=== PATIENT | female | born 1945 | race Caucasian/White ===

== ENCOUNTER 2018-02-20 16:44 | Emergency (ER) | payer OTHER ==
--- NOTE | 2018-02-20 17:58 | ER ---
Nurse's Notes [facility] Name: Jovita Guerrier Age: 72 yrs Sex: Female : 1945 Arrival Date: 02/20/2018 Time: 16:48 Bed Treatment Private MD: LYUBOV DOCKERY Diagnosis: Pain in right ankle and joints of right foot Presentation: 02/20 16:53 Presenting complaint: Patient states: "I just went to sit down and all of a sudden I aa5 got a pain to my right ankle and my foot". Transition of care: patient was not received from another setting of care. Onset of symptoms was February 2018. Risk Assessment: Do you want to hurt yourself or someone else? Patient reports no desire to harm self or others. Initial Sepsis Screen: Does the patient meet any 2 criteria? No. Patient's initial sepsis screen is negative. Does the patient have a suspected source of infection? No. Patient's initial sepsis screen is negative. Care prior to arrival: None. 16:53 Method Of Arrival: Ambulatory aa5 16:53 Acuity: DANNIELLE 4 aa5 Historical: - Allergies: 16:54 Codeine; aa5 16:54 Sulfa (Sulfonamide Antibiotics); aa5 - PMHx: 16:54 Diabetes - NIDDM; Headaches; Hyperlipidemia; aa5 - PSHx: 16:54 Hysterectomy; foot surgery; aa5 - Immunization history:: Last tetanus immunization: up to date. - Social history:: Smoking status: Patient/guardian denies using tobacco. - Ebola Screening: : No symptoms or risks identified at this time. Screenin:02 Abuse screen: Denies threats or abuse. Denies injuries from another. Nutritional rv screening: No deficits noted. Tuberculosis screening: No symptoms or risk factors identified. Fall Risk None identified. Assessment: 17:00 General: Appears in no apparent distress. comfortable, Behavior is calm, cooperative. rv Pain: Complains of pain in right ankle and lateral aspect of right foot Pain currently is 10 out of 10 on a pain scale. Neuro: Level of Consciousness is awake, alert, obeys commands, Oriented to person, place, time, situation. Cardiovascular: Capillary refill < 3 seconds. Respiratory: Airway is patent. GI: No signs and/or symptoms were reported involving the gastrointestinal system. : No signs and/or symptoms were reported regarding the genitourinary system. EENT: No signs and/or symptoms were reported regarding the EENT system. Derm: Skin is intact. Musculoskeletal: Reports pain in right ankle and lateral aspect of right foot. 17:40 Reassessment: XRAY DONE. AWAITING RESULT. rv Vital Signs: 16:54 BP 155 / 74; Pulse 64; Resp 18 S; Temp 97.8(TE); Pulse Ox 96% on R/A; Weight 89.81 kg aa5 (R); Height 5 ft. 6 in. (167.64 cm) (R); Pain 10/10; 16:54 Body Mass Index 31.96 (89.81 kg, 167.64 cm) aa5 ED Course: 16:48 Patient arrived in ED. sb2 16:49 LYUBOV DOCKERY is Private Physician. sb2 16:53 Triage completed. aa5 16:53 Arm band placed on. aa5 17:03 Jose Anderson PA is PHCP. cp 17:03 Tim Lynn MD is Attending Physician. cp 17:38 No provider procedures requiring assistance completed. rv 17:39 Patient has correct armband on for positive identification. Call light in reach. rv 17:50 X-ray completed. Portable x-ray completed in exam room. Patient tolerated procedure ml well. 17:53 XRAY Ankle RIGHT 3 view In Process Unspecified. EDMS 17:53 XRAY Foot RIGHT 3 View In Process Unspecified. EDMS 17:57 Ezequiel Vasquez MD is Referral Physician. cp 18:16 Patient did not have IV access during this emergency room visit. rv Administered Medications: No medications were administered Outcome: 17:57 Discharge ordered by . cp 18:16 Discharged to home ambulatory. rv 18:16 Condition: good 18:16 Discharge instructions given to patient, Instructed on discharge instructions, medication usage, Prescriptions given X 1. 18:16 Patient left the ED. rv Signatures: Dispatcher [employer] Jesica Lozano Audri, RN RN aa5 Jose Anderson PA PA cp Kassidy Conklin sb2 Keegan Cifuentes RN RN rv
--- NOTE | 2018-02-20 17:58 | EDPHYS ---
Physician Documentation [facility] Name: Jovita Guerrier Age: 72 yrs Sex: Female : 1945 Arrival Date: 02/20/2018 Time: 16:48 Bed Treatment Private MD: LYUBOV DOCKERY ED Physician Tim Lynn HPI: 02/20 17:10 This 72 yrs old Female presents to ER via Ambulatory with complaints of Ankle cp Injury. 17:10 The patient presents with pain, that is acute, tenderness. The complaints affect the cp right ankle and right foot. Onset: The symptoms/episode began/occurred this morning. Context: resulted from an unknown cause, The patient can fully bear weight on the affected extremity. the patient is able to ambulate, with mild difficulty. Associated signs and symptoms: Pertinent positives: paresthesias, Pertinent negatives: calf tenderness, fever, swelling. Modifying factors: the symptoms are aggravated by weight bearing. Severity of symptoms: in the emergency department the symptoms are unchanged, despite home interventions. Historical: - Allergies: 16:54 Codeine; aa5 16:54 Sulfa (Sulfonamide Antibiotics); aa5 - PMHx: 16:54 Diabetes - NIDDM; Headaches; Hyperlipidemia; aa5 - PSHx: 16:54 Hysterectomy; foot surgery; aa5 - Immunization history:: Last tetanus immunization: up to date. - Social history:: Smoking status: Patient/guardian denies using tobacco. - Ebola Screening: : No symptoms or risks identified at this time. ROS: 17:15 Constitutional: Negative for body aches, chills, fever, poor PO intake. cp 17:15 Eyes: Negative for injury, pain, redness, and discharge. cp 17:15 ENT: Negative for drainage from ear(s), ear pain, sore throat, difficulty swallowing, difficulty handling secretions. 17:15 Cardiovascular: Negative for chest pain, edema. 17:15 Respiratory: Negative for cough, shortness of breath, wheezing. 17:15 MS/extremity: Positive for pain, tenderness, of the right ankle and right foot. 17:15 Skin: Negative for cellulitis, rash. 17:15 Neuro: Positive for numbness, of the right ankle and right foot. 17:15 All other systems are negative. Exam: 17:25 Head/Face: Normocephalic, atraumatic. cp 17:25 Constitutional: The patient appears in no acute distress, alert, awake, non-toxic, well developed, well nourished. 17:25 Eyes: Periorbital structures: appear normal, Conjunctiva: normal, no exudate, no injection, Lids and lashes: appear normal, bilaterally. 17:25 ENT: External ear(s): are unremarkable, Nose: is normal, Posterior pharynx: is normal, airway is patent. 17:25 Chest/axilla: Inspection: normal. 17:25 Cardiovascular: Rate: normal, Pulses: Pulses are 2+ in right dorsalis pedis artery. 17:25 Respiratory: the patient does not display signs of respiratory distress, Respirations: normal, no use of accessory muscles, no retractions. 17:25 Abdomen/GI: Exam negative for discomfort, distension, guarding, Inspection: abdomen appears normal. 17:25 Musculoskeletal/extremity: Extremities: grossly normal except: noted in the lateral aspect of right ankle and dorsum of right foot: pain, tenderness, There is no evidence of injury, decreased ROM, deformity. 17:25 Skin: cellulitis, is not appreciated, no rash present. Vital Signs: 16:54 BP 155 / 74; Pulse 64; Resp 18 S; Temp 97.8(TE); Pulse Ox 96% on R/A; Weight 89.81 kg aa5 (R); Height 5 ft. 6 in. (167.64 cm) (R); Pain 10/10; 16:54 Body Mass Index 31.96 (89.81 kg, 167.64 cm) aa5 MDM: 17:03 Patient medically screened. cp 17:15 Differential diagnosis: fracture, sprain, gout, cellulitis. cp 17:56 Data reviewed: vital signs, nurses notes, radiologic studies, plain films. cp 02/20 17:07 Order name: XRAY Ankle RIGHT 3 view cp 02/20 17:07 Order name: XRAY Foot RIGHT 3 View cp 02/20 17:56 Order name: Crutches; Complete Time: 18:05 cp 02/20 17:56 Order name: Ankle Splint: Aircast; Complete Time: 18:05 cp Administered Medications: No medications were administered Disposition: 18:29 Co-signature as Attending Physician, Tim Lynn MD I agree with the assessment and kdr plan of care. Disposition: 02/20/18 17:57 Discharged to Home. Impression: Pain in right ankle and joints of right foot. - Condition is Stable. - Discharge Instructions: Ankle Pain. - Prescriptions for Tramadol 50 mg Oral Tablet - take 1 tablet by ORAL route every 8 hours as needed; 12 tablet. - Medication Reconciliation Form, Thank You Letter, Antibiotic Education, Prescription Opioid Use form. - Follow up: Ezequiel Vasquez MD; When: 1 week; Reason: pain continues. - Problem is new. - Symptoms are unchanged. Signatures: Dispatcher [employer] EDMS Tim Lynn MD MD [facility] Sarika Reed RN RN aa5 Jose Anderson PA PA cp Keegan Cifuentes, RN RN rv Corrections: (The following items were deleted from the chart) 18:16 17:57 02/20/2018 17:57 Discharged to Home. Impression: Pain in right ankle and joints rv of right foot. Condition is Stable. Forms are Medication Reconciliation Form, Thank You Letter, Antibiotic Education, Prescription Opioid Use. Follow up: Ezequiel Vasquez; When: 1 week; Reason: pain continues. Problem is new. Symptoms are unchanged. cp
--- NOTE | 2018-02-20 18:05 | RAD REPORT ---
EXAM DESCRIPTION: RAD - Ankle Right 3 View - 02/20/2018 5:53 pm CLINICAL HISTORY: PAIN COMPARISON: FOOT W OBLIQUES dated 12/29/2009; MRI FOOT RIGHT dated 12/30/2009 FINDINGS: Right ankle and right foot, multiple projections are submitted. No acute fracture or dislocation is seen. Small calcaneal spurs are noted. Mild tibiotalar arthritic changes are noted in the ankle. Moderate intertarsal degenerative changes are seen. Significant hallu x valgus with degenerative changes at the first MTP joint. Fusion with hardware is noted at the level of the PIP joints of the second and third toes. IMPRESSION: No acute injury is identified.
== END 2018-02-20 18:16 | disposition home or self-care (01) ==
LOC: ER 16:44
DX: M25.571 Pain in right ankle and joints of right foot (principal); E11.9 Type 2 diabetes mellitus without complications; E78.5 Hyperlipidemia, unspecified; Z88.6 Allergy status to analgesic agent; Z88.2 Allergy status to sulfonamides
CPT/HCPCS: 99283

== ENCOUNTER 2018-06-19 09:49 | Emergency (ER) | payer OTHER ==
--- OUTSIDE RECORDS SUMMARY | 2018-06-19 09:53 | XMS REPORT ---
:1945 Author Organization eClinicalWorks Care Team Providers Name Role Phone Shira Rios Provider Role Unavailable Allergies No Known Allergies Problems Problem Type Condition Code Onset Dates Condition Status Problem Spasm R25.2 Active Problem Diabetic peripheral neuropathy E11.42 Active Problem Mixed stress and urge urinary N39.46 Active incontinence Problem Hypertension I10 Active Problem Dyslipidemia E78.5 Active Problem Hyperlipidemia E78.5 Active Problem Depression F32.9 Active Problem Diabetes mellitus type 2, controlled E11.9 Active Problem Dizziness R42 Active Problem Sleep apnea G47.30 Active Medications Medication Code System Code Instructions Start Date End Date Status Dosage Myrbetriq [facility] 35809198882 25 MG Orally Once Oct 15, Nov 14, Active 1 tablet a day 2017 2017 Results No Known Results Summary Purpose eClinicalWorks Submission
--- OUTSIDE RECORDS SUMMARY | 2018-06-19 09:53 | XMS REPORT ---
:1945 Author Organization eClinical[employer] Care Team Providers Name Role Phone Shira Rios Provider Role Unavailable Allergies, Adverse Reactions, Alerts Substance Reaction Event Type Lyrica swelling Drug Allergy Problems Problem Type Condition Code Onset Dates Condition Status Problem Spasm R25.2 Active Problem Diabetic peripheral neuropathy E11.42 Active Problem Mixed stress and urge urinary N39.46 Active incontinence Problem Hypertension I10 Active Problem Dyslipidemia E78.5 Active Problem Hyperlipidemia E78.5 Active Problem Depression F32.9 Active Problem Diabetes mellitus type 2, E11.9 Active controlled Problem Dizziness R42 Active Problem Sleep apnea G47.30 Active Assessment Screening mammogram, encounter for Z12.31 Active Assessment Encounter for immunization Z23 Active Assessment Medicare annual wellness visit, Z00.00 Active subsequent Assessment Screening for osteoporosis Z13.820 Active Medications Medication Code Code Instructions Start End Status Dosage System Date Date Cymbalta [facility] 92502136169 20 MG Orally December 23, Active 1 capsule once a day 2017 Metformin HCl [facility] 77636079473 1000MG Active TAKE ONE TABLET BY MOUTH TWICE DAILY Metanx [facility] 58292335057 [id number] Active as directed MG Orally Gabapentin [facility] 07535752352 300 MG Active TAKE ONE CAPSULE BY MOUTH THREE TIMES DAILY Metoprolol [facility] 84478257816 25MG Active TAKE ONE Tartrate TABLET BY MOUTH TWICE DAILY Atorvastatin [facility] 18338336380 20MG Active TAKE ONE Calcium TABLET BY MOUTH ONCE DAILY IN THE EVENING Results No Known Results Immunizations Vaccine Administration Date Pneumovax May 25, 2018 Summary Purpose eClinicalWorks Submission
--- OUTSIDE RECORDS SUMMARY | 2018-06-19 09:53 | XMS REPORT ---
:1945 Author Organization eClinicalWorks Care Team Providers Name Role Phone Shira Rios Provider Role Unavailable Allergies, Adverse Reactions, Alerts Substance Reaction Event Type Lyrica swelling Drug Allergy Problems Problem Type Condition Code Onset Dates Condition Status Problem Spasm R25.2 Active Problem Diabetic peripheral neuropathy E11.42 Active Problem Mixed stress and urge urinary N39.46 Active incontinence Assessment Excessive cerumen in left ear canal H61.22 Active Assessment Mixed stress and urge urinary N39.46 Active incontinence Problem Hypertension I10 Active Problem Dyslipidemia E78.5 Active Problem Hyperlipidemia E78.5 Active Problem Depression F32.9 Active Problem Diabetes mellitus type 2, controlled E11.9 Active Problem Dizziness R42 Active Problem Sleep apnea G47.30 Active Medications Medication Code Code Instructions Start End Status Dosage System Date Date Gabapentin [facility] [address]-24 300 MG Orally Active 1 capsule Three times a day Metanx [facility] 80836700721 [id number] Active as MG Orally directed Oxybutynin ND 35671517176 5 MG Orally March 07Apr Active 1 tablet Chloride Twice a day 2017 Atorvastatin [facility] 76465674641 20MG Active TAKE ONE Calcium TABLET BY MOUTH ONCE DAILY IN THE EVENING Metoprolol ND 32223613960 25MG Active TAKE ONE Tartrate TABLET BY MOUTH TWICE DAILY Cymbalta ND 08948829635 20 MG Orally December 23, Active 1 capsule once a day 2017 Metformin HCl ND 09748808048 1000MG Active TAKE ONE TABLET BY MOUTH TWICE DAILY Results No Known Results Summary Purpose eClinicalWorks Submission
[2018-06-19] MEDS ORDERED: NA CHLORIDE 0.9% 500 ML ONE (10:22)
[2018-06-19 10:34] LABS: Absolute Lymphocytes (CBC) 2.1 K/uL (0.7-4.9); Absolute Monocytes 0.8 K/uL (0.1-1.3); Absolute Neutrophil 5.9 K/uL (1.8-8.0); Basophils % 0.4 % (0-1.3); Eosinophils % 0.5 % (0-4.4); Hematocrit 38.2 % (36.0-45.0); Lymphocytes % 23.2 % (15.3-44.8); MCH 30.3 pg (27.0-35.0); MCV 91.8 fL (80-100); MPV 8.3 fL (7.6-11.3); Monocytes % 9.4 % (3.3-12.3); RBC Red Blood Cell Count 4.16 M/uL (3.86-4.86)
--- NOTE | 2018-06-19 10:41 | RAD REPORT ---
EXAM DESCRIPTION: CT - Head Brain Wo Cont - 06/19/2018 10:31 am CLINICAL HISTORY: headache, dizzy COMPARISON: Head Brain Wo Cont dated 07/01/2016 TECHNIQUE: All CT scans are performed using dose optimization technique as appropriate and may inclu de automated exposure control or mA/KV adjustment according to patient size. FINDINGS: No intracranial hemorrhage, hydrocephalus or extra-axial fluid collection.No areas of brai n edema or evidence of midline shift. The paranasal sinuses and mastoids are clear. The calvarium is intact. IMPRESSION: No acute intracranial abnormality.
[2018-06-19 10:47] LABS: Potassium 4.1 mmol/L (3.5-5.1)
--- NOTE | 2018-06-19 11:07 | RAD REPORT ---
EXAM DESCRIPTION: RAD - Chest Single View - 06/19/2018 10:55 am CLINICAL HISTORY: dizziness Chest pain. COMPARISON: Chest Pa And Lat (2 Views) dated 03/20/2017 FINDINGS: Portable technique limits examination quality. The lungs are grossly clear. The heart is normal in size. No displaced fractures. IMPRESSION: No acute intrathoracic process suspected.
[2018-06-19 12:29] LABS: Urine Blood NEGATIVE (NEG); Urine Glucose NEGATIVE (NEG); Urine Protein NEGATIVE (NEG); Urine Specific Gravity 1.015 (1.005-1.030)
[2018-06-19 12:36] LABS: Urine Bacteria <20 /HPF (<20); Urine Culture Reflex Order REFLEXED; Urine RBC NONE SEEN /HPF (NONE SEEN)
--- NOTE | 2018-06-19 12:41 | EDPHYS ---
Physician Documentation [facility] Name: Jovita Guerrier Age: 72 yrs Sex: Female : 1945 Arrival Date: 06/19/2018 Time: 09:52 Bed 4 Private MD: LYUBOV DOCKERY ED Physician Niles López HPI: 06/19 12:31 This 72 yrs old Female presents to ER via Wheelchair with complaints of rn Doesn't Feel Right. 12:31 The patient presents with dizziness, feeling faint, sense of spinning. Onset: The rn symptoms/episode began/occurred 3 day(s) ago. Modifying factors: The symptoms are alleviated by holding head still, lying down, the symptoms are aggravated by movement of head, standing up. Severity of symptoms: At their worst the symptoms were moderate in the emergency department the symptoms have improved. The patient has experienced similar episodes in the past. Reports doesn't feel well, + head and sinus pressure, + runny nose, + cough for 1 week, seen last week by pcp, told had viral syndrome, but not better. No syncope. No chest pain/sob. . Historical: - Allergies: 10:04 Codeine; aa5 10:04 Sulfa (Sulfonamide Antibiotics); aa5 - PMHx: 10:04 Diabetes - NIDDM; Headaches; Hyperlipidemia; aa5 - PSHx: 10:04 Hysterectomy; foot surgery; aa5 - Immunization history:: Adult Immunizations up to date, Pneumococcal vaccine is up to date, Flu vaccine is up to date. - Social history:: Smoking status: Patient/guardian denies using tobacco, Patient/guardian denies using alcohol, Smoking status: Patient/guardian denies using tobacco. - Ebola Screening: : Patient negative for fever greater than or equal to 101.5 degrees Fahrenheit, and additional compatible Ebola Virus Disease symptoms Patient denies exposure to infectious person Patient denies travel to an Ebola-affected area in the 21 days before illness onset No symptoms or risks identified at this time. - Family history:: not pertinent. - Hospitalizations: : No recent hospitalization is reported. ROS: 12:31 Constitutional: Negative for fever, chills, and weight loss, Eyes: Negative for injury, rn pain, redness, and discharge, Cardiovascular: Negative for chest pain, palpitations, and edema, Respiratory: Negative for shortness of breath, wheezing, and pleuritic chest pain, Abdomen/GI: Negative for abdominal pain, nausea, vomiting, diarrhea, and constipation, MS/Extremity: Negative for injury and deformity, Skin: Negative for injury, rash, and discoloration, Neuro: Negative for numbness, tingling, and seizure. Exam: 12:31 Constitutional: This is a well developed, well nourished patient who is awake, alert, rn tearful Head/Face: Normocephalic, atraumatic. Eyes: Pupils equal round and reactive to light, extra-ocular motions intact. Lids and lashes normal. Conjunctiva and sclera are non-icteric and not injected. Cornea within normal limits. Periorbital areas with no swelling, redness, or edema. ENT: MMM, no stridor Neck: Trachea midline, no thyromegaly or masses palpated, and no cervical lymphadenopathy. Supple, full range of motion without nuchal rigidity, or vertebral point tenderness. No Meningismus. Cardiovascular: Regular rate and rhythm with a normal S1 and S2. No gallops, murmurs, or rubs. No pulse deficits. Respiratory: Lungs have equal breath sounds bilaterally, clear to auscultation. No increased work of breathing, no retractions or nasal flaring. Abdomen/GI: soft, non-tender MS/ Extremity: Pulses equal, no cyanosis. Neurovascular intact. Full, normal range of motion. Equal circumference. Neuro: Awake and alert, GCS 15, oriented to person, place, time, and situation. Cranial nerves II-XII grossly intact. Motor strength 5/5 in all extremities. Sensory grossly intact. Vital Signs: 10:01 BP 143 / 79; Pulse 60; Resp 18; Temp 98.5(O); Pulse Ox 100% on R/A; Weight 88.9 kg; hj Height 5 ft. 6 in. (167.64 cm); 11:35 BP 141 / 67; Pulse 62; Resp 18; Pulse Ox 100% on R/A; hj 12:22 BP 158 / 80; Pulse 56; Resp 18; Pulse Ox 100% on R/A; hj 13:10 BP 152 / 78; Pulse 58; Resp 18; Pulse Ox 100% on R/A; hj 10:01 Body Mass Index 31.63 (88.90 kg, 167.64 cm) hj NIH Stroke Scale Scores: 10:03 NIHSS Score: 0 MDM: 09:57 Patient medically screened. rn 12:38 Differential diagnosis: cardiac arrhythmia, generalized weakness, hypovolemia, rn idiopathic dizziness, near-syncope, vertigo, viral syndrome, dehydration, pneumonia. Data reviewed: vital signs, nurses notes, lab test result(s), radiologic studies, plain films, and as a result, I will discharge patient. Counseling: I had a detailed discussion with the patient and/or guardian regarding: the historical points, exam findings, and any diagnostic results supporting the discharge/admit diagnosis, lab results, the need for outpatient follow up, to return to the emergency department if symptoms worsen or persist or if there are any questions or concerns that arise at home. Special discussion: I discussed with the patient/guardian in detail that at this point there is no indication for admission to the hospital. It is understood, however, that if the symptoms persist or worsen the patient needs to return immediately for re-evaluation. 06/19 10:42 Order name: Group A Streptococcus Rapid Sc; Complete Time: 11:19 EDWI 06/19 10:44 Order name: CBC with Automated Diff; Complete Time: 11:19 EDWI 06/19 10:48 Order name: Basic Metabolic Panel; Complete Time: 11:19 EDWI 06/19 10:52 Order name: Influenza Screen (A ; Complete Time: 11:19 EDWI 06/19 10:59 Order name: [place] Screen; Complete Time: 11:19 EDWI 06/19 11:19 Order name: Urine Microscopic Only [facility] 06/19 11:24 Order name: Throat Culture [facility] 06/19 12:23 Order name: Urine Dipstick--Ancillary (enter results) 06/19 10:12 Order name: CT Head Brain wo Cont rn 06/19 10:12 Order name: IV Start; Complete Time: 10:29 rn 06/19 10:12 Order name: Urine Dipstick-Ancillary (obtain specimen); Complete Time: 12:22 rn 06/19 10:12 Order name: XRAY Chest (1 view) 06/19 10:12 Order name: EKG; Complete Time: 10:40 rn 06/19 10:12 Order name: EKG - Nurse/Tech; Complete Time: 10:28 rn 06/19 10:52 Order name: CT; Complete Time: 11:19 EDWI 06/19 11:08 Order name: RAD; Complete Time: 11:19 EDWI 06/19 12:38 Order name: Urine Culture EDMS Administered Medications: 10:20 Drug: NS 0.9% 500 ml Route: IV; Rate: bolus; Site: left antecubital; hj 13:11 Follow up: IV Status: Completed infusion hj Disposition: 06/19/18 12:40 Discharged to Home. Impression: Acute sinusitis, Cough. - Condition is Stable. - Discharge Instructions: Sinusitis, Adult. - Prescriptions for Zithromax Z- Selvin 250 mg Oral Tablet - take 1 tablet by ORAL route as directed for 5 days Day 1 - take two (2) tablets one time. Day 2, 3, 4 , 5 take one (1) tablet once daily.; 6 tablet. - Medication Reconciliation Form, Thank You Letter, Antibiotic Education, Prescription Opioid Use form. - Follow up: Private Physician; When: As needed; Reason: Recheck today's complaints, Re-evaluation by your physician. - Problem is new. - Symptoms have improved. NIH Stroke Scale - NIH Stroke Score Date: 06/19/2018 Time: 10:03 Total Score = 0 1a. Level of Consciousness (LOC) - 0(Alert) 1b. Level of Consciousness (LOC) (Year \T\ Age) - 0(Both) 1c. LOC Commands (Open \T\ Closes Eyes/Telex Operator) - 0(Both) 2. Best Gaze (Lateral Gaze Paresis) - 0(Normal) 3. Visual Field Loss - 0(No visual loss) 4. Facial Palsy - 0(Normal) 5a. Left Arm: Motor (10-second hold) - 0(No drift) 5b. Right Arm: Motor (10-second hold) - 0(No drift) 6a. Left Leg: Motor (5-second hold - always test supine) - 0(No drift) 6b. Right Leg: Motor (5-second hold - always test supine) - 0(No drift) 7. Limb Ataxia (finger/nose \T\ heel/garcia - test with eyes open) - 0(Absent) 8. Sensory Loss (pinprick arms/legs/face) - 0(Normal) 9. Best Language: Aphasia (description/naming/reading) - 0(No aphasia) 10. Dysarthria (speech clarity - read or repeat words) - 0(Normal) 11. Extinction and Inattention (visual/tactile/auditory/spatial/personal) - 0(No abnormality) Initials: hj Signatures: Dispatcher [employer] EDWI Niles López MD MD rn Calderon, Audri RN RN aa5 Mark Anthony Mock RN RN hj Corrections: (The following items were deleted from the chart) 11:39 10:39 Group A Streptococcus Rapid Sc+BA.LAB.BRZ ordered. EDMS EDMS 11:40 10:39 BASIC METABOLIC PANEL+C.LAB.BRZ ordered. EDMS EDMS 11:41 10:39 CBC+H.LAB.BRZ ordered. EDMS EDMS 11:41 10:39 UA MICROSCOPIC+U.LAB.BRZ ordered. EDMS EDMS 11:41 10:39 Influenza Screen (A \T\ B)+BA.LAB.BRZ ordered. EDMS EDMS 11:41 10:40 MONO SCREEN PROFILE+I.LAB.BRZ ordered. EDMS EDMS 13:16 12:40 06/19/2018 12:40 Discharged to Home. Impression: Acute sinusitis; Cough. hj Condition is Stable. Forms are Medication Reconciliation Form, Thank You Letter, Antibiotic Education, Prescription Opioid Use. Follow up: Private Physician; When: As needed; Reason: Recheck today's complaints, Re-evaluation by your physician. Problem is new. Symptoms have improved. rn
--- NOTE | 2018-06-19 12:41 | ER ---
Nurse's Notes [facility] Name: Jovita Guerrier Age: 72 yrs Sex: Female : 1945 Arrival Date: 06/19/2018 Time: 09:52 Bed 4 Private MD: LYUBOV DOCKERY Diagnosis: Acute sinusitis;Cough Presentation: 06/19 09:56 Presenting complaint: Patient states: "I just don't feel good". pt states "I woke up aa5 with vertigo on Tuesday, my head feels cloudy, I break out in a cold sweat every now and then and I've been coughing for a week now". 09:56 Transition of care: patient was not received from another setting of care. Onset of aa5 symptoms was June 2018. Risk Assessment: Do you want to hurt yourself or someone else? Patient reports no desire to harm self or others. Initial Sepsis Screen: Does the patient meet any 2 criteria? No. Patient's initial sepsis screen is negative. Does the patient have a suspected source of infection? No. Patient's initial sepsis screen is negative. Care prior to arrival: None. 09:56 Method Of Arrival: Wheelchair aa5 09:56 Acuity: DANNIELLE 3 aa5 Historical: - Allergies: 10:04 Codeine; aa5 10:04 Sulfa (Sulfonamide Antibiotics); aa5 - PMHx: 10:04 Diabetes - NIDDM; Headaches; Hyperlipidemia; aa5 - PSHx: 10:04 Hysterectomy; foot surgery; aa5 - Immunization history:: Adult Immunizations up to date, Pneumococcal vaccine is up to date, Flu vaccine is up to date. - Social history:: Smoking status: Patient/guardian denies using tobacco, Patient/guardian denies using alcohol, Smoking status: Patient/guardian denies using tobacco. - Ebola Screening: : Patient negative for fever greater than or equal to 101.5 degrees Fahrenheit, and additional compatible Ebola Virus Disease symptoms Patient denies exposure to infectious person Patient denies travel to an Ebola-affected area in the 21 days before illness onset No symptoms or risks identified at this time. - Family history:: not pertinent. - Hospitalizations: : No recent hospitalization is reported. Screenin:03 Abuse screen: Denies threats or abuse. Denies injuries from another. Nutritional hj screening: No deficits noted. Tuberculosis screening: No symptoms or risk factors identified. Fall Risk None identified. Assessment: 10:02 General: Appears in no apparent distress. uncomfortable, Behavior is calm, cooperative, hj appropriate for age. Pain: Denies pain. Neuro: Level of Consciousness is awake, alert, obeys commands, Oriented to person, place, time, situation, Appropriate for age Reports dizziness. Cardiovascular: Capillary refill < 3 seconds Patient's skin is warm and dry. Respiratory: Reports cough that is Airway is patent Respiratory effort is even, unlabored, Respiratory pattern is regular, symmetrical. GI: No signs and/or symptoms were reported involving the gastrointestinal system. : No signs and/or symptoms were reported regarding the genitourinary system. EENT: No signs and/or symptoms were reported regarding the EENT system. Derm: No signs and/or symptoms reported regarding the dermatologic system. Musculoskeletal: No signs and/or symptoms reported regarding the musculoskeletal system. 10:25 Reassessment: wheeled to CT;. hj 10:54 Reassessment: Patient and/or family updated on plan of care and expected duration. Pain hj level reassessed. Patient is alert, oriented x 3, equal unlabored respirations, skin warm/dry/pink. Patient states feeling better. Patient states symptoms have improved. 11:34 Reassessment: Patient and/or family updated on plan of care and expected duration. Pain hj level reassessed. Patient is alert, oriented x 3, equal unlabored respirations, skin warm/dry/pink. awaiting results and POC;. 12:10 Reassessment: Patient and/or family updated on plan of care and expected duration. Pain hj level reassessed. Patient is alert, oriented x 3, equal unlabored respirations, skin warm/dry/pink. assisted pt to bathroom; states: "i still is a little bit unbalanced". 12:59 Reassessment: gave oren crackers and orange juice;. hj Vital Signs: 10:01 BP 143 / 79; Pulse 60; Resp 18; Temp 98.5(O); Pulse Ox 100% on R/A; Weight 88.9 kg; hj Height 5 ft. 6 in. (167.64 cm); 11:35 BP 141 / 67; Pulse 62; Resp 18; Pulse Ox 100% on R/A; hj 12:22 BP 158 / 80; Pulse 56; Resp 18; Pulse Ox 100% on R/A; hj 13:10 BP 152 / 78; Pulse 58; Resp 18; Pulse Ox 100% on R/A; hj 10:01 Body Mass Index 31.63 (88.90 kg, 167.64 cm) NIH Stroke Scale Scores: 10:03 NIHSS Score: 0 ED Course: 09:52 Patient arrived in ED. mr 09:53 LYUBOV DOCKERY is Private Physician. mr 09:56 Arm band placed on Patient placed in an exam room, on a stretcher. aa5 09:57 Niles López MD is Attending Physician. rn 10:01 Mark Anthony Mock RN is Primary Nurse. 10:04 Triage completed. aa5 10:05 Patient has correct armband on for positive identification. Bed in low position. Call hj light in reach. Side rails up X 1. Adult w/ patient. 10:20 Initial lab(s) drawn, by ak, sent to lab. Flu and/or RSV swab sent to lab. Strep swab hj sent to lab. Inserted saline lock: 22 gauge in left antecubital area, using aseptic technique. Blood collected. 10:24 EKG done, by ophthalmic technologist. reviewed by Niles López MD. 3 10:53 X-ray completed. Portable x-ray completed in exam room. Patient tolerated procedure mh1 well. 12:21 Urine collected: clean catch specimen, clear. dh3 12:24 REPEAT EKG DONE. 3 13:09 No provider procedures requiring assistance completed. IV discontinued, intact, hj bleeding controlled, No redness/swelling at site. Pressure dressing applied. Administered Medications: 10:20 Drug: NS 0.9% 500 ml Route: IV; Rate: bolus; Site: left antecubital; 13:11 Follow up: IV Status: Completed infusion Outcome: 12:40 Discharge ordered by . rn 13:09 Discharged to home ambulatory. 13:09 Condition: stable 13:09 Discharge instructions given to patient, Instructed on discharge instructions, follow up and referral plans. medication usage, Demonstrated understanding of instructions, follow-up care, medications, Prescriptions given X 1. 13:16 Patient left the ED. NIH Stroke Scale - NIH Stroke Score Date: 06/19/2018 Time: 10:03 Total Score = 0 1a. Level of Consciousness (LOC) - 0(Alert) 1b. Level of Consciousness (LOC) (Year \\T\\ Age) - 0(Both) 1c. LOC Commands (Open \\T\\ Closes Eyes/Telephone Information Supervisor) - 0(Both) 2. Best Gaze (Lateral Gaze Paresis) - 0(Normal) 3. Visual Field Loss - 0(No visual loss) 4. Facial Palsy - 0(Normal) 5a. Left Arm: Motor (10-second hold) - 0(No drift) 5b. Right Arm: Motor (10-second hold) - 0(No drift) 6a. Left Leg: Motor (5-second hold - always test supine) - 0(No drift) 6b. Right Leg: Motor (5-second hold - always test supine) - 0(No drift) 7. Limb Ataxia (finger/nose \\T\\ heel/garcia - test with eyes open) - 0(Absent) 8. Sensory Loss (pinprick arms/legs/face) - 0(Normal) 9. Best Language: Aphasia (description/naming/reading) - 0(No aphasia) 10. Dysarthria (speech clarity - read or repeat words) - 0(Normal) 11. Extinction and Inattention (visual/tactile/auditory/spatial/personal) - 0(No abnormality) Initials: Signatures: Emilia Garcia mr PatricioMargo 1 Niles López MD MD rn Calderon, Audri, RN RN aa5 Mark Anthony Mock RN RN Ida Castellanos 3 Juanita Spears 3
--- NOTE | 2018-06-19 15:20 | EKG ---
Test Date: 2018-06-19 Test Time: 11:21:32 [employer]: JANAY MEASUREMENT RESULTS: Intervals: Rate: 57 TX: 126 QRSD: 84 QT: 394 QTc: 383 [place]: P: -24 TX: 126 QRS: -19 T: 4 INTERPRETIVE STATEMENTS: Sinus bradycardia Moderate voltage criteria for LVH, may be normal variant Borderline ECG Compared to ECG 07/02/2016 10:58:15 Left ventricular hypertrophy now present Sinus rhythm no longer present Electronically Signed On 06-19-18 15:19:22 [employer] by Alexander Duque
--- NOTE | 2018-06-20 06:30 | EKG ---
Test Date: 2018-06-19 Test Time: 13:18:57 Psychologist Social: JANAY MEASUREMENT RESULTS: Intervals: Rate: 62 VA: 114 QRSD: 84 QT: 380 QTc: 385 [place]: P: VA: 114 QRS: -17 T: 9 INTERPRETIVE STATEMENTS: Normal sinus rhythm Minimal voltage criteria for LVH, may be normal variant Borderline ECG Compared to ECG 06/19/2018 11:21:32 Sinus bradycardia no longer present Electronically Signed On 06-20-18 06:29:40 [employer]OCK [employer]KER by Alexander Duque
== END 2018-06-19 13:16 | disposition home or self-care (01) ==
LOC: ER 09:49
DX: J01.90 Acute sinusitis, unspecified (principal); R05 Cough; R00.1 Bradycardia, unspecified; E11.9 Type 2 diabetes mellitus without complications; E78.5 Hyperlipidemia, unspecified
CPT/HCPCS: 36415; 70450; 71045; 80048; 81003; 81015; 85025; 86308; 87070; 87081; 87086; 87088; 87804; 93005; 96360; 96361; 99284

== ENCOUNTER 2021-05-18 20:54 | Observation (INO) | payer OTHER, SELFPAY ==
--- NOTE | 2021-05-18 21:37 | RAD REPORT ---
EXAM DESCRIPTION: RAD - Chest Single View - 05/18/2021 9:27 pm CLINICAL HISTORY: COUGH COMPARISON: Chest Single View dated 06/19/2018; Chest Pa And Lat (2 Views) dated 03/20/2017 FINDINGS: Lines: None. Lungs: No evidence of edema or pneumonia. Pleural: No significant pleural effusions or pneumothorax. Cardiac: The heart size is within normal limits. Bones: No acute fractures. Other: IMPRESSION: No acute cardiopulmonary disease.
[2021-05-18 21:42] LABS: Absolute Lymphocytes (CBC) 0.4 K/uL (0.7-4.9); Basophils % 0.2 % (0-1.3); Hematocrit 32.5 % (36.0-45.0); Lymphocytes % 6.5 % (15.3-44.8); MPV 8.2 fL (7.6-11.3); RBC Red Blood Cell Count 3.56 M/uL (3.86-4.86)
[2021-05-18 21:43] LABS: Protime INR 1.21
[2021-05-18] MEDS ORDERED: NA CHLORIDE 0.9% 1,000 ML ONE (21:54)
[2021-05-18 21:55] LABS: BUN Blood Urea Nitrogen 23 mg/dL (7-18); Bicarbonate 27 mmol/L (21-32); Glucose Level 138 mg/dL (74-106); Sodium Level 140 mmol/L (136-145)
[2021-05-18 21:56] LABS: ALT/SGPT 35 U/L (12-78); AST/SGOT 21 U/L (15-37); Albumin 3.6 g/dL (3.4-5.0); Alkaline Phosphatase 58 U/L (45-117); Bilirubin Direct 0.2 mg/dL (0-0.2); Bilirubin Total 0.6 mg/dL (0.2-1.0); Lipase 321 U/L (73-393); Magnesium 1.5 mg/dL (1.8-2.4); NT PRO-BNP 297 pg/mL (<125); Protein, Total 6.8 g/dL (6.4-8.2); Troponin (Emerg Dept Use Only) < 0.02 ng/mL (0.0-0.045)
[2021-05-18] MEDS ORDERED: FAMOTIDINE 20 MG/2 ML VIAL IV ONE (22:25)
[2021-05-18] MEDS ORDERED: ONDANSETRON 4 MG/2 ML VIAL ONE (22:25)
[2021-05-18] MEDS ORDERED: MORPHINE 2 MG/ML SYR ONE (22:25)
[2021-05-18] MEDS ORDERED: MUPIROCIN 2% OINT 22GM TUBE TOP ONE (22:25)
--- NOTE | 2021-05-18 22:39 | ER ---
Nurse's Notes [facility] Name: Jovita Guerrier Age: 75 yrs Sex: Female : 1945 Arrival Date: 05/18/2021 Time: 21:00 Bed 6 Private MD: Diagnosis: Vomiting;Diarrhea, unspecified;Abdominal pain, Generalized;Fever, unspecified;Dehydration;Hypomagnesemia Presentation: 05/18 21:05 Chief complaint: Patient states: [place] Nausea, Vomiting and Diarrhea that started dc2 yesterday. today is worse. Also complaining of left foot cramping which is chronic. Coronavirus screen: Vaccine status: Patient reports receiving the 2nd dose of the covid vaccine. Client denies travel out of the [place] in the last 14 days. diarrhea, nausea, vomiting. Client presents with at least one sign or symptom that may indicate coronavirus-19. Standard/surgical mask placed on the client. Provider contacted for isolation considerations. The client reports previous COVID testing was negative. unknown. Ebola Screen: Patient negative for fever greater than or equal to 101.5 degrees Fahrenheit, and additional compatible Ebola Virus Disease symptoms Patient denies exposure to infectious person. Patient denies travel to an Ebola-affected area in the 21 days before illness onset. 21:05 Method Of Arrival: EMS: [facility] dc2 21:05 Initial Sepsis Screen: Does the patient meet any 2 criteria? Temp <36.0*C (96.8*F)) or dc2 > 38.3*C (100.9*F). No. Patient's initial sepsis screen is negative. Risk Assessment: Do you want to hurt yourself or someone else? Patient reports no desire to harm self or others. Onset of symptoms was May 17, 2021. Care prior to arrival: Took gabapentin for feet cramping, called EMS and they completed left antecubital #20g with Normal saline and EKG performed in field. 21:05 Acuity: DANNIELLE 3 dc2 23:00 Initial Sepsis Screen: Does the patient have a suspected source of infection? No. dc2 Patient's initial sepsis screen is negative. Triage Assessment: 21:10 General: Appears uncomfortable, well groomed, well developed, Behavior is calm, dc2 cooperative. Pain: Pain currently is 2 out of 10 on a pain scale. Quality of pain is described as crampy, Pain began years ago. Is intermittent. Neuro: No deficits noted. Cardiovascular: No deficits noted. Respiratory: No deficits noted. GI: Abdomen is non-distended, obese, Stools are reported to be diarrhea. Last BM was April 18, 2021. Last meal was April 18, 2021. at 13:00. Bowel sounds present X 4 quads. hyperactive in right upper quadrant, left upper quadrant, right lower quadrant and left lower quadrant Reports diarrhea, nausea, vomiting, since Tuesday afternoon , by today it has worsened vomiting everything. Pt instructed on NPO status at this time. : No signs and/or symptoms were reported regarding the genitourinary system. Musculoskeletal: No deficits noted. Historical: - Allergies: 21:11 Codeine; cw2 21:11 Sulfa (Sulfonamide Antibiotics); cw2 - Immunization history:: Adult Immunizations up to date. - Social history:: Smoking status: Patient denies any tobacco usage or history of. Patient/guardian denies using. Screenin:08 Abuse screen: Denies threats or abuse. Nutritional screening: No deficits noted. cw2 Tuberculosis screening: No symptoms or risk factors identified. Fall Risk IV access (20 points). Assessment: 21:05 General: Appears in no apparent distress. uncomfortable, obese, well groomed, Behavior dc2 is cooperative, anxious. Pain: Complains of pain in Stomach and bilateral feet ( nueropathy). 21:05 Neuro: No deficits noted. Cardiovascular: No deficits noted. Respiratory: No deficits dc2 noted. GI: Abdomen is round non-distended, Bowel sounds present X 4 quads. hyperactive in umbilical area, right upper quadrant, left upper quadrant, right lower quadrant and left lower quadrant Reports diarrhea, nausea, vomiting, since Tuesday with increasing on Tuesday. : Denies burning with urination, urinary frequency. Musculoskeletal: No deficits noted. No signs and/or symptoms reported regarding the musculoskeletal system. Vital Signs: 21:05 BP 130 / 72; Pulse 91; Resp 18; Temp 100.1; Pulse Ox 97% ; Weight 86.18 kg (R); Height dc2 5 ft. 6 in. (167.64 cm); Pain 2/10; 21:05 BP 130 / 72; Pulse 91; Resp 18; Temp 100.1; Pulse Ox 97% ; Weight 86.18 kg; Height 5 dc2 ft. 6 in. (167.64 cm); Pain 2/10; 22:39 BP 113 / 92; Pulse 90; Resp 18; Pulse Ox 98% ; Pain 4/10; dc2 23:00 BP 147 / 66; Pulse 89; Resp 17; Pulse Ox 96% ; Pain 2/10; dc2 10 00:00 BP 137 / 74; Pulse 87; Resp 17; Pulse Ox 94% ; Pain 0/10; dc2 01:00 BP 141 / 69; Pulse 79; Resp 17; Temp 99.1; Pulse Ox 97% on R/A; Pain 0/10; dc2 05/18 21:05 Body Mass Index 30.67 (86.18 kg, 167.64 cm) dc2 ED Course: 05/18 21:00 Patient arrived in ED. cf2 21:03 Jose Roman MD is Attending Physician. [facility] 21:05 Brooke Santiago RN is Primary Nurse. dc2 21:05 No provider procedures requiring assistance completed. Initial lab(s) drawn, by ED cw2 staff, sent to lab. Maintain EMS IV. Dressing intact. Site clean \T\ dry. Gauge \T\ site: 20g LAC. 21:07 No apparent distress. cw2 21:08 Patient has correct armband on for positive identification. Placed in gown. Bed in low cw2 position. Call light in reach. Side rails up X2. bus driver/monitor on. Pulse ox on. NIBP on. Door closed. Noise minimized. Lights dimmed. Moved to private room. 21:13 Triage completed. dc2 21:19 X-ray(s) taken. dc2 21:25 Basic Metabolic Panel Sent. dc2 21:25 XRAY Chest (1 view) Sent. dc2 21:25 CBC with Diff Sent. dc2 21:25 LFT's Sent. dc2 21:25 Magnesium Sent. dc2 21:25 NT PRO-BNP Sent. dc2 21:25 PT-INR Sent. dc2 21:25 Troponin (emerg Dept Use Only) Sent. dc2 21:25 Basic Metabolic Panel Sent. dc2 21:26 XRAY Chest (1 view) In Process Unspecified. EDMS 21:26 Lipase Sent. dc2 22:[address] dc2 22:15 CT Abd/Pelvis - IV Contrast Only In Process Unspecified. EDMS 22:15 Door closed. Lights dimmed. dc2 22:15 bus driver/monitor on. Pulse ox on. NIBP on. Assisted to bedside commode. dc2 22:38 [place] MD is Hospitalizing Provider. [facility] 22:39 [address] moved [address] dc2 23:00 Patient wound care. dc2 05/19 00:29 antibiotic ointment and band aid applied to left foot. dc2 01:08 Patient admitted, IV remains in place. intact, No redness/swelling at site. dc2 Administered Medications: 05/18 21:37 Drug: NS 0.9% 1000 ml Route: IV; Rate: 1 bolus; Infused Over: 1 hrs; Site: left dc2 antecubital; Delivery: Primary tubing; 22:00 Drug: Bactroban (mupirocin) Ointment 2 % 1 application {Note: Left great toe.} Route: dc2 Topical; Site: affected area; 22:39 Drug: Zofran (Ondansetron) 4 mg Route: IVP; Site: left antecubital; dc2 23:30 Follow up: Response: Nausea is decreased dc2 22:40 Drug: Pepcid (famotidine) 20 mg Route: IVP; Site: left antecubital; dc2 23:09 Follow up: Response: No adverse reaction dc2 23:30 Follow up: Response: No adverse reaction dc2 22:40 Drug: morphine 2 mg Route: IVP; Site: left antecubital; dc2 23:30 Follow up: Response: Pain is decreased dc2 22:44 Drug: Cipro (ciprofloxacin) 400 mg Volume: 200 ml; Route: IVPB; Infused Over: 60 mins; cw2 Site: left antecubital; 23:45 Follow up: IV Status: Completed infusion; IV Intake: 100ml dc2 22:44 Drug: Flagyl (metroNIDAZOLE) 500 mg Volume: 100 ml; Route: IVPB; Rate: 200 ml/hr; cw2 Infused Over: 30 mins; Site: left antecubital; 23:45 Follow up: IV Status: Completed infusion; IV Intake: 100ml dc2 22:45 Drug: Magnesium Sulfate 2 grams Route: IVPB; Infused Over: 2 hrs; Site: left cw2 antecubital; 05/19 00:45 Follow up: IV Status: Completed infusion; IV Intake: 100ml dc2 Intake: 05/18 23:45 IV: 100ml; Total: 100ml. dc2 23:45 IV: 100ml; Total: 200ml. dc2 05/19 00:45 IV: 100ml; Total: 300ml. dc2 Outcome: 05/18 22:39 Decision to Hospitalize by Provider. michael 05/19 01:07 Admitted to Med/surg accompanied by tech, via stretcher, Report called to SEFERINO Shaffer dc2 Condition: improved Instructed on the need for admit, safety practices. 01:21 Patient left the ED. dc2 Signatures: Dispatcher [employer] [facility] Jose Roman MD MD cha Frazier, [place] 2 Brooke Santiago RN RN evy2 Yves Murillo RN RN cw2 Corrections: (The following items were deleted from the chart) 05/18 21:10 21:08 PMHx: Diabetes - NIDDM; cw2 cw2 21:10 21:08 PMHx: Headaches; cw2 cw2 21:10 21:08 PMHx: Hyperlipidemia; cw2 cw2 21:11 21:08 Allergies: Codeine [Inactive]; cw2 cw2 21:11 21:08 Allergies: Sulfa (Sulfonamide Antibiotics) [Inactive]; cw2 cw2
--- NOTE | 2021-05-18 22:39 | EDPHYS ---
Physician Documentation [facility] Name: Jovita Guerrier Age: 75 yrs Sex: Female : 1945 Arrival Date: 05/18/2021 Time: 21:00 Bed 6 Private MD: ED Physician Jose Roman HPI: 05/18 21:42 This 75 yrs old Female presents to ER via EMS with complaints of michael Nausea/Vomiting/Diarrhea. 21:42 The patient presents to the emergency department with nausea, vomiting, diarrhea, that michael is continuous. Onset: The symptoms/episode began/occurred 8 hour(s) ago. Possible causes: unknown. The symptoms are aggravated by nothing. The symptoms are alleviated by nothing. Associated signs and symptoms: The patient has no apparent associated signs or symptoms. Severity of symptoms: At their worst the symptoms were mild in the emergency department the symptoms are unchanged. The patient has not experienced similar symptoms in the past. Historical: - Allergies: 21:11 Codeine; cw2 21:11 Sulfa (Sulfonamide Antibiotics); cw2 - Immunization history:: Adult Immunizations up to date. - Social history:: Smoking status: Patient denies any tobacco usage or history of. Patient/guardian denies using. ROS: 21:44 Constitutional: Negative for fever, chills, and weight loss, Eyes: Negative for injury, michael pain, redness, and discharge, ENT: Negative for injury, pain, and discharge, Neck: Negative for injury, pain, and swelling, Cardiovascular: Negative for chest pain, palpitations, and edema, Respiratory: Negative for shortness of breath, cough, wheezing, and pleuritic chest pain, Back: Negative for injury and pain, : Negative for injury, bleeding, discharge, and swelling, MS/Extremity: Negative for injury and deformity, Skin: Negative for injury, rash, and discoloration, Neuro: Negative for headache, weakness, numbness, tingling, and seizure, Psych: Negative for depression, anxiety, suicide ideation, homicidal ideation, and hallucinations, Allergy/Immunology: Negative for hives, rash, and allergies, Endocrine: Negative for neck swelling, polydipsia, polyuria, polyphagia, and marked weight changes, Hematologic/Lymphatic: Negative for swollen nodes, abnormal bleeding, and unusual bruising. 21:44 Abdomen/GI: Positive for abdominal pain, nausea and vomiting, diarrhea, abdominal cramps, abdominal distension. Exam: 21:44 Constitutional: This is a well developed, well nourished patient who is awake, alert, michael and in no acute distress. Head/Face: Normocephalic, atraumatic. Eyes: Pupils equal round and reactive to light, extra-ocular motions intact. Lids and lashes normal. Conjunctiva and sclera are non-icteric and not injected. Cornea within normal limits. Periorbital areas with no swelling, redness, or edema. ENT: Nares patent. No nasal discharge, no septal abnormalities noted. Tympanic membranes are normal and external auditory canals are clear. Oropharynx with no redness, swelling, or masses, exudates, or evidence of obstruction, uvula midline. Mucous membranes moist. Neck: Trachea midline, no thyromegaly or masses palpated, and no cervical lymphadenopathy. Supple, full range of motion without nuchal rigidity, or vertebral point tenderness. No Meningismus. Chest/axilla: Normal chest wall appearance and motion. Nontender with no deformity. No lesions are appreciated. Cardiovascular: Regular rate and rhythm with a normal S1 and S2. No gallops, murmurs, or rubs. Normal PMI, no JVD. No pulse deficits. Respiratory: Lungs have equal breath sounds bilaterally, clear to auscultation and percussion. No rales, rhonchi or wheezes noted. No increased work of breathing, no retractions or nasal flaring. Back: No spinal tenderness. No costovertebral tenderness. Full range of motion. Skin: Warm, dry with normal turgor. Normal color with no rashes, no lesions, and no evidence of cellulitis. MS/ Extremity: Pulses equal, no cyanosis. Neurovascular intact. Full, normal range of motion. Neuro: Awake and alert, GCS 15, oriented to person, place, time, and situation. Cranial nerves II-XII grossly intact. Motor strength 5/5 in all extremities. Sensory grossly intact. Cerebellar exam normal. Normal gait. Psych: Awake, alert, with orientation to person, place and time. Behavior, mood, and affect are within normal limits. 21:44 Abdomen/GI: Inspection: distension, that is mild, Bowel sounds: hyperactive, in all quadrants, Palpation: mild abdominal tenderness, in all quadrants, Liver: no appreciated palpable abnormalities, Hernia: not appreciated. 05/19 01:10 ECG was reviewed by the Attending Physician. [facility] Vital Signs: 05/18 21:05 BP 130 / 72; Pulse 91; Resp 18; Temp 100.1; Pulse Ox 97% ; Weight 86.18 kg (R); Height dc2 5 ft. 6 in. (167.64 cm); Pain 2/10; 21:05 BP 130 / 72; Pulse 91; Resp 18; Temp 100.1; Pulse Ox 97% ; Weight 86.18 kg; Height 5 dc2 ft. 6 in. (167.64 cm); Pain 2/10; 22:39 BP 113 / 92; Pulse 90; Resp 18; Pulse Ox 98% ; Pain 4/10; dc2 23:00 BP 147 / 66; Pulse 89; Resp 17; Pulse Ox 96% ; Pain 2/10; dc2 05/19 00:00 BP 137 / 74; Pulse 87; Resp 17; Pulse Ox 94% ; Pain 0/10; dc2 01:00 BP 141 / 69; Pulse 79; Resp 17; Temp 99.1; Pulse Ox 97% on R/A; Pain 0/10; dc2 05/18 21:05 Body Mass Index 30.67 (86.18 kg, 167.64 cm) dc2 MDM: 05/18 21:03 Patient medically screened. [facility] 21:45 Differential diagnosis: Nonspecific abd pain, gastritis, cholecystitis, pancreatitis, michael diverticulitis, viral gastroenteritis, gastroenteritis, bowel obstruction, cholecystitis, Cholelithiasis, diverticulitis, gastritis. Data reviewed: vital signs, nurses notes, lab test result(s), EKG, radiologic studies, CT scan. Data interpreted: teletypesetter monitor: not applicable for this patient encounter. rate is 91 beats/min, rhythm is regular, Pulse oximetry: on room air is 97 %. Test interpretation: by ED physician or midlevel provider: ECG, plain radiologic studies. Counseling: I had a detailed discussion with the patient and/or guardian regarding: the historical points, exam findings, and any diagnostic results supporting the discharge/admit diagnosis, lab results, radiology results, the need for further work-up and treatment in the hospital. 05/18 21:06 Order name: Basic Metabolic Panel [facility] 05/18 21:06 Order name: CBC with Diff; Complete Time: 22:48 [facility] 05/18 21:06 Order name: LFT's; Complete Time: 22:35 [facility] 05/18 21:06 Order name: Magnesium; Complete Time: 22:35 [facility] 05/18 21:06 Order name: NT PRO-BNP; Complete Time: 22:35 [facility] 05/18 21:06 Order name: PT-INR; Complete Time: 22:35 [facility] 05/18 21:06 Order name: Troponin (emerg Dept Use Only); Complete Time: 22:35 [facility] 05/18 21:06 Order name: Lipase; Complete Time: 22:35 [facility] 05/18 21:06 Order name: Fecal Leukocyte Stain [facility] 05/18 21:06 Order name: Stool Culture [facility] 05/18 21:07 Order name: Basic Metabolic Panel; Complete Time: 22:35 EDMS 05/18 21:53 Order name: Manual Differential; Complete Time: 22:48 EDMS 05/19 00:22 Order name: SARS-COV-2 RT PCR EDMS 05/18 21:06 Order name: XRAY Chest (1 view); Complete Time: 21:42 [facility] 05/18 21:06 Order name: EKG; Complete Time: 21:07 [facility] 05/18 21:06 Order name: Cardiac monitoring; Complete Time: 21:25 [facility] 05/18 21:06 Order name: EKG - Nurse/Tech [facility] 05/18 21:06 Order name: IV Saline Lock; Complete Time: 21:25 [facility] 05/18 21:06 Order name: Labs collected and sent; Complete Time: 21:25 [facility] 05/18 21:06 Order name: O2 Per Protocol; Complete Time: 21:25 [facility] 05/18 21:54 Order name: CT Abd/Pelvis - IV Contrast Only [facility] 05/18 21:06 Order name: O2 Sat Monitoring; Complete Time: 21:25 [facility] 05/18 21:42 Order name: Wound Care: right foot; Complete Time: 23:09 [facility] EC/05 01:10 Rate is 78 beats/min. Rhythm is regular. QRS [place] is Normal. [place] interval is normal. QRS michael interval is normal. QT interval is normal. No Q waves. T waves are Normal. No ST changes noted. Clinical impression: NSR w/ Non-specific ST/T Changes and No evidence of ischemia. Interpreted by me. Reviewed by me. Administered Medications: 10/04 21:37 Drug: NS 0.9% 1000 ml Route: IV; Rate: 1 bolus; Infused Over: 1 hrs; Site: left dc2 antecubital; Delivery: Primary tubing; 22:00 Drug: Bactroban (mupirocin) Ointment 2 % 1 application {Note: Left great toe.} Route: dc2 Topical; Site: affected area; 22:39 Drug: Zofran (Ondansetron) 4 mg Route: IVP; Site: left antecubital; dc2 23:30 Follow up: Response: Nausea is decreased dc2 22:40 Drug: Pepcid (famotidine) 20 mg Route: IVP; Site: left antecubital; dc2 23:09 Follow up: Response: No adverse reaction dc2 23:30 Follow up: Response: No adverse reaction dc2 22:40 Drug: morphine 2 mg Route: IVP; Site: left antecubital; dc2 23:30 Follow up: Response: Pain is decreased dc2 22:44 Drug: Cipro (ciprofloxacin) 400 mg Volume: 200 ml; Route: IVPB; Infused Over: 60 mins; cw2 Site: left antecubital; 23:45 Follow up: IV Status: Completed infusion; IV Intake: 100ml dc2 22:44 Drug: Flagyl (metroNIDAZOLE) 500 mg Volume: 100 ml; Route: IVPB; Rate: 200 ml/hr; cw2 Infused Over: 30 mins; Site: left antecubital; 23:45 Follow up: IV Status: Completed infusion; IV Intake: 100ml dc2 22:45 Drug: Magnesium Sulfate 2 grams Route: IVPB; Infused Over: 2 hrs; Site: left cw2 antecubital; 05/19 00:45 Follow up: IV Status: Completed infusion; IV Intake: 100ml dc2 Disposition Summary: 05/18/21 22:39 Hospitalization Ordered Hospitalization Status: Inpatient Admission michael Provider: [facility] Location: Telemetry/MedSurg (Inpatient) michael Condition: Stable michael Problem: new michael Symptoms: have improved michael Bed/Room Type: Standard michael Room Assignment: 201(05/19/21 00:27) tl1 Diagnosis - Vomiting michael - Diarrhea, unspecified michael - Abdominal pain, Generalized michael - Fever, unspecified michael - Dehydration michael - Hypomagnesemia michael Forms: - Medication Reconciliation Form michael - SBAR form michael Signatures: Dispatcher [employer] EDMS Jose Roman MD MD cha Lasagna, Tonya, RN RN tl1 Mason Carter PA PA ej Charters, Denise, RN RN dc2 Yves Murillo, SEFERINO RN cw2 Corrections: (The following items were deleted from the chart) 05/18 21:10 21:08 PMHx: Diabetes - NIDDM; cw2 2 : 21:08 PMHx: Headaches; cw2 2 : 21:08 PMHx: Hyperlipidemia; cw2 cw2 : 21:08 Allergies: Codeine [Inactive]; 2 cw2 21: 21:08 Allergies: Sulfa (Sulfonamide Antibiotics) [Inactive]; 2 2 23:23 21:07 CORONAVIRUS+MR.LAB.BRZ ordered. EDNE EDNE 05/19 00:27 05/18 22:39 michael tl1
[2021-05-18 22:48] LABS: Blood Morphology Comment NOT SEEN (NOT SEEN); Platelet Estimate ADEQ
[2021-05-18] MEDS ORDERED: METRONIDAZOLE 500mg IVPB 500 MG/100 ML BAG IV ONE (23:08)
[2021-05-18] MEDS ORDERED: Magnesium Sulfate 2gm IVPB 2 G/50 ML BAG IV ONE (23:08)
[2021-05-18] MEDS ORDERED: CIPROFLOXACIN 400mg IV 400 MG/200 ML BAG IV ONE (23:08)
--- NOTE | 2021-05-19 00:24 | P.HP ---
Certification for Inpatient Patient admitted to: Observation With expected LOS: <2 Midnights Patient will require the following post-hospital care: None Practitioner: I am a practitioner with admitting privileges, knowledge of patient current condition, hospital course, and medical plan of care. Services: Services provided to patient in accordance with Admission requirements found in Title 42 Section 412.3 of the Code of Federal Regulations Patient History Date of Service: 05/19/21 Primary Care Provider: Mirta Reason for admission: intractable nausea and vomiting History of Present Illness: Ms. Guerrier is a 75 yo F with T2DM, HTN, HLD, LOI and neuropathy who presents with nausea, vomiting and diarrhea beginning today at 1pm. She reports malaise, fatigue and chills beginning yesterday evening. She says she has been eating lunch meat sandwiches, but today she felt like the bread and the mayonnaise were making her nauseous so she just ate the lunch meat. She denies abdominal pain, but reports soreness from vomiting. BUN 23, GFR 52. Glu 138. Mg 1.5. CT scan shows mild fluid-filled prominence of some loops of bowel in the lower adomen with no evidence for obstruction, correlate for ileus or enteritis & moderate left colonic diverticulosis without evidence of acute diverticulitis. Received cipro, flagyl, magnesium and fluids in the ED. Allergies Sulfa (Sulfonamide Antibiotics) Allergy (Severe, Verified 11/25/14 07:43) Nausea/Vomiting codeine Adverse Reaction (Verified 11/25/14 07:44) Nausea/Vomiting Home Medications: Gabapentin 300 mg PO TID 11/25/14 Metformin HCl [Glucophage] 500 tab PO BID 11/25/14 Aspirin [Aspirin EC 81 MG] 81 mg PO DAILY #90 tablet. 07/03/16 Metoprolol Tartrate [Lopressor*] 25 mg PO BID 6AM 6PM #60 tab 07/03/16 Ondansetron HCl [Zofran] 4 mg PO TID PRN #15 tablet 07/03/16 - Past Medical/Surgical History Diabetic: Yes -: Diabetes mellitus type 2 -: Hypertension -: Hyperlipidemia -: Obstructive sleep apnea -: Obesity -: Neuropathy -: Migraine -: Hysterectomy -: Left foot I and D -: Tendon surgery to the lower extremities bilaterally Psychosocial/ Personal History: She is 33 years, she has no children, she works as a [employer] agent. She also works at the [employer]. - Family History Mother -: Heart disease (Atrial fibrillation) Father -: Heart disease - Social History Smoking Status: Never smoker Alcohol use: No CD- Drugs: No Caffeine use: Yes Place of Residence: Home Review of Systems 10-point ROS is otherwise unremarkable General: Chills, Malaise Gastrointestinal: Nausea, Vomiting, Diarrhea Physical Examination - Physical Exam General: Alert, In no apparent distress, Oriented x3, Cooperative HEENT: Atraumatic, PERRLA, Mucous membr. moist/pink, EOMI, Sclerae nonicteric Neck: Supple, 2+ carotid pulse no bruit, No LAD, Without JVD or thyroid abnormality Respiratory: Clear to auscultation bilaterally, Normal air movement Cardiovascular: Regular rate/rhythm, Normal S1 S2 Gastrointestinal: Normal bowel sounds, Soft and benign, Non-distended, No ascites, No tenderness, No masses, No rebound, No guarding Musculoskeletal: No tenderness Integumentary: No rashes Neurological: Normal speech, Normal strength at 5/5 x4 extr, Normal tone, Normal affect Lymphatics: No axilla or inguinal lymphadenopathy - Studies Laboratory Data (last 24 hrs) 05/18/21 21:00: PT 13.9 H, INR 1.21 05/18/21 21:00: WBC 6.60, Hgb 11.1 L, Hct 32.5 L, Plt Count 209 05/18/21 21:00: Sodium 140, Potassium 4.0, BUN 23 H, Creatinine 1.03, Glucose 138 H, Magnesium 1.5 L, Total Bilirubin 0.6, AST 21, ALT 35, Alkaline Phosphatase 58, Lipase 321 Assessment and Plan - Problems (Diagnosis) (1) Diarrhea Onset Date: 07/02/16 Current Visit: No Status: Acute Qualifiers: Diarrhea type: unspecified type Qualified Code(s): R19.7 - Diarrhea, unspecified (2) Gastroenteritis Onset Date: 07/02/16 Current Visit: No Status: Acute (3) Nausea and vomiting Onset Date: 07/02/16 Current Visit: No Status: Acute Qualifiers: Vomiting type: unspecified Vomiting Intractability: unspecified Qualified Code(s): R11.2 - Nausea with vomiting, unspecified (4) Diabetes mellitus Onset Date: 07/02/16 Current Visit: No Status: Chronic Qualifiers: Diabetes mellitus type: type 2 Diabetes mellitus adjunct faculty for medical terminology insulin use: unspecified adjunct faculty for medical terminology insulin use status Diabetes mellitus complication status: without complication Qualified Code(s): E11.9 - Type 2 diabetes mellit without complications (5) Hyperlipidemia Onset Date: 07/02/16 Current Visit: No Status: Chronic Qualifiers: Hyperlipidemia type: unspecified Qualified Code(s): E78.5 - Hyperlipidemia, unspecified (6) Hypertension Onset Date: 07/02/16 Current Visit: No Status: Chronic Qualifiers: Hypertension type: essential hypertension - Plan continue IVF hydration and electrolyte replacement antiemetics and kelly management as needed stool cultures, blood cultures, UA pending anemia workup pending sliding scale insulin and accuchecks, A1c pending reconcile and continue home medications DVT ppx Discharge Plan: Home Plan to discharge in: 24 Hours - Advance Directives Does patient have a Living Will: No Does patient have a Durable POA for Healthcare: No - Code Status/Comfort Care Code Status Assessed: Yes (full code ) Critical Care: No Time Spent Managing Pts Care (In Minutes): 70
[2021-05-19] MEDS ORDERED: ACETAMINOPHEN 500 MG TAB PO PRN (01:11)
[2021-05-19] MEDS ORDERED: ONDANSETRON 4 MG/2 ML VIAL IV PRN (01:11)
[2021-05-19] MEDS: NA CHLORIDE 0.9% 1,000 ML IV SCH ×2 (02:11→11:11)
[2021-05-19] MEDS ORDERED: MORPHINE 2 MG/ML SYR IV PRN (02:12)
[2021-05-19 02:34] LABS: Urine Appearance CLEAR (Clear); Urine Bilirubin NEGATIVE (Negative); Urine Blood NEGATIVE (Negative); Urine Color YELLOW (Yellow); Urine Glucose NEGATIVE (Negative); Urine Protein NEGATIVE (Negative); Urine Specific Gravity >=1.030 (1.005-1.030); Urine Urobilinogen 0.2 mg/dL (0.2-1.0); Urine pH 5.5 (5.0-7.0)
[2021-05-19 02:45] LABS: Urine Microscopic Reflex NO UMIC
[2021-05-19 03:17] VITALS: BMI 30.7
[2021-05-19 06:00] LABS: Absolute Lymphocytes (CBC) 0.7 K/uL (0.7-4.9); Basophils % 0.3 % (0-1.3); Hematocrit 29.9 % (36.0-45.0); Lymphocytes % 15.7 % (15.3-44.8); MPV 7.8 fL (7.6-11.3); RBC Red Blood Cell Count 3.27 M/uL (3.86-4.86)
[2021-05-19 06:24] LABS: ALT/SGPT 27 U/L (12-78); AST/SGOT 16 U/L (15-37); Albumin 3.1 g/dL (3.4-5.0); Alkaline Phosphatase 51 U/L (45-117); BUN Blood Urea Nitrogen 19 mg/dL (7-18); Bicarbonate 26 mmol/L (21-32); Bilirubin Total 0.7 mg/dL (0.2-1.0); Ferritin 31.8 ng/mL (8-388); Glucose Level 113 mg/dL (74-106); Magnesium 2.1 mg/dL (1.8-2.4); Phosphorus 3.5 mg/dL (2.5-4.9); Potassium 3.9 mmol/L (3.5-5.1); Sodium Level 141 mmol/L (136-145); Transferrin 215 mg/dL (200-360)
[2021-05-19 06:56] LABS: Folic Acid, (Folate) > 20.0 ng/mL (3.1-17.5)
[2021-05-19] MEDS: INSULIN -REGULAR HUMAN 50 UNIT/0.5 ML ML SQ SCH ×2 (07:30→11:30)
[2021-05-19] MEDS ORDERED: PNEUMOCOCCAL VACCINE 0.5 ML IMVAC ONE (08:00)
[2021-05-19] MEDS ORDERED: INFLUENZA VACCINE (for 6+ mo) 0.5 ML DOSE IMVAC ONE (08:00)
[2021-05-19 08:42] VITALS: O2SAT 91
[2021-05-19] MEDS ORDERED: ENOXAPARIN 40 MG/0.4 ML SQ SCH (09:00)
[2021-05-19] MEDS ORDERED: POTASSIUM CL SA 10 MEQ TAB PO ONE (09:00)
--- NOTE | 2021-05-19 12:07 | P.DS ---
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 She reports malaise, fatigue and chills beginning yesterday evening. She related her symptoms to her meals. She denied abdominal pain. BUN 23, GFR 52. Glu 138. Mg 1.5. CT scan shows mild fluid-filled prominence of some loops of bowel in the lower adomen with no evidence for obstruction, correlate for ileus or enteritis & moderate left colonic diverticulosis without evidence of acute diverticulitis. Received cipro, flagyl, magnesium and fluids in the ED. Patient hospitalized for further management. Hospital Course: Patient placed under observation on the medical floor and treated with supportive measures. She was treated with IV Flagyl and Cipro in the emergency department. Patient's symptoms improved overnight. She tolerated diet. She had diarrhea which has abated. Patient ambulating and currently asymptomatic. She has no abdominal pain. She is deemed stable for discharge. Vital Signs/Physical Exam: Temp Pulse Resp BP Pulse Ox 97.6 F 68 18 129/60 96 05/19/21 08:00 05/19/21 08:00 05/19/21 08:00 05/19/21 08:00 05/19/21 08:00 General: Alert, In no apparent distress, Oriented x3 HEENT: Normocephalic, Mucous membr. moist/pink Neck: JVD not distended Respiratory: Clear to auscultation bilaterally, Normal air movement Cardiovascular: No edema, Regular rate/rhythm, Normal S1 S2, No murmurs Gastrointestinal: Normal bowel sounds, Soft and benign, Non-distended, No tenderness Musculoskeletal: No swelling Integumentary: No rashes Neurological: Normal strength at 5/5 x4 extr Laboratory Data at Discharge: WBC 4.40 K/uL (4.3-10.9) D 05/19/21 05:32 Hgb 10.2 g/dL (12.0-15.0) L 05/19/21 05:32 Hct 29.9 % (36.0-45.0) L 05/19/21 05:32 Plt Count 179 K/uL (152-406) 05/19/21 05:32 PT 13.9 SECONDS (9.5-12.5) H 05/18/21 21:00 INR 1.21 05/18/21 21:00 Sodium 141 mmol/L (136-145) 05/19/21 05:32 Potassium 3.9 mmol/L (3.5-5.1) 05/19/21 05:32 BUN 19 mg/dL (7-18) H 05/19/21 05:32 Creatinine 1.01 mg/dL (0.55-1.3) 05/19/21 05:32 Glucose 113 mg/dL (74-106) H 05/19/21 05:32 Phosphorus 3.5 mg/dL (2.5-4.9) 05/19/21 05:32 Magnesium 2.1 mg/dL (1.8-2.4) D 05/19/21 05:32 Total Bilirubin 0.7 mg/dL (0.2-1.0) 05/19/21 05:32 AST 16 U/L (15-37) 05/19/21 05:32 ALT 27 U/L (12-78) 05/19/21 05:32 Alkaline Phosphatase 51 U/L (45-117) 05/19/21 05:32 Lipase 321 U/L (73-393) 05/18/21 21:00 Home Medications: Metformin HCl [Glucophage] 1,000 tab PO BID 11/25/14 Metoprolol Tartrate [Lopressor*] 25 mg PO BID 6AM 6PM #60 tab 07/03/16 Atorvastatin Calcium [Lipitor*] 20 mg PO BEDTIME 05/19/21 Ciprofloxacin HCl [Cipro 500 MG Tablet] 500 mg PO BID #10 tab 05/19/21 Diclofenac Sodium 75 mg PO BID 05/19/21 Duloxetine [Cymbalta *] 20 mg PO DAILY 05/19/21 metroNIDAZOLE [Flagyl] 500 mg PO Q8H #15 tablet 05/19/21 New Medications: Ciprofloxacin HCl [Cipro 500 MG Tablet] 500 mg PO BID #10 tab metroNIDAZOLE [Flagyl] 500 mg PO Q8H #15 tablet Diet: ADA (Start from full liquid and advance as tolerated) Activity: Ad zoya Followup: NONE,NONE [Primary Care Provider] - 1-2 Weeks
[2021-05-19] MEDS ORDERED: GABAPENTIN 300 MG CAP PO SCH (12:09)
[2021-05-19 13:17] VITALS: BP 137/62; TEMP 97.4
--- NOTE | 2021-05-19 13:29 | RAD REPORT ---
EXAM DESCRIPTION: CT - Abdomen Pelvis W Contrast - 05/19/2021 6:43 am CLINICAL HISTORY: ABD PAIN. Prominent and diarrhea, starting today. COMPARISON: None. TECHNIQUE: CT of the abdomen and pelvis was performed following intravenous administration of iodina chacha contrast. Arterial phase images through the abdomen, and portal venous phase images through the a bdomen and pelvis were obtained. Oral contrast was not administered. Axial, coronal, and sagittal sof t tissue window reconstructions were created and sent to PACS. This exam was performed according to our departmental dose-optimization program, which includes autom ated exposure control, adjustment of the mA and/or kV according to patient size and/or use of iterati ve reconstruction technique. FINDINGS: Moderate motion degradation. Thoracic: No significant abnormality. Hepatobiliary: No concerning hepatic lesion identified. The portal veins are patent. The gallbladder is unremarkable. No biliary ductal dilatation. Pancreas: Unremarkable. Spleen: Unremarkable. Gastrointestinal: Mild fluid-filled prominence of some loops of bowel in the lower abdomen, with no e vidence for obstruction. No evidence of perienteric inflammation. The appendix is normal. Moderate le ft colonic diverticulosis. Small amount of fecal material throughout the colon. Adrenals: No abnormality identified in either adrenal gland. Renal: Mild bilateral perinephric fat stranding. No concerning parenchymal abnormality in either kidn ey. No hydronephrosis or urolithiasis. Bladder/Reproductive: Unremarkable appearance of the urinary bladder by CT technique. Hysterectomy. Vascular/Lymphatics: No lymphadenopathy identified by CT size criteria. Mild to moderate calcific ath erosclerosis. The major visceral vessels are patent. Abdominal aorta is normal in caliber. Musculoskeletal: No concerning osseous lesion identified. Moderate lumbar spondylosis. Osteopenia. Fluid / peritoneum: No significant free fluid. No free intraperitoneal air identified. IMPRESSION 1. Mild fluid-filled prominence of some loops of bowel in the lower abdomen, with no ev idence for obstruction. Correlate for ileus or enteritis. 2. Moderate left colonic diverticulosis without evidence of acute diverticulitis. Electronically signed by: Tashia Cat MD 05/18/2021 10:33 PM CDT Due to temporary technical issues with the PACS/Fluency reporting system, reports are being signed by the in house radiologists without review as a courtesy to insure prompt reporting. The interpreting radiologist is fully responsible for the content of the report.
--- NOTE | 2021-05-19 18:07 | EKG ---
Test Date: 2021-05-19 Test Time: 00:47:25 Fitness Technician: MAYELA MEASUREMENT RESULTS: Intervals: Rate: 78 PA: 162 QRSD: 136 QT: 430 QTc: 490 [place]: P: 34 PA: 162 QRS: -2 T: 153 INTERPRETIVE STATEMENTS: Normal sinus rhythm Left bundle branch block Abnormal ECG Compared to ECG 06/19/2018 13:18:57 Left bundle-branch block now present Left ventricular hypertrophy no longer present Electronically Signed On 05-19-21 18:05:38 CDT by Mendoza Gomez
== END 2021-05-19 13:40 | disposition home or self-care (01) ==
LOC: ER 20:54 → ERHOLD 05-19 00:29 → 2ND 05-19 00:51
PROVIDERS: ADMIT Internal Medicine; ATTEND Internal Medicine
DX: K52.9 Noninfective gastroenteritis and colitis, unspecified (principal); E11.40 Type 2 diabetes mellitus with diabetic neuropathy, unspecified; I10 Essential (primary) hypertension; E86.0 Dehydration; E78.5 Hyperlipidemia, unspecified; E83.42 Hypomagnesemia; R50.9 Fever, unspecified; G47.33 Obstructive sleep apnea (adult) (pediatric); G43.909 Migraine, unspecified, not intractable, without status migrainosus; Z23 Encounter for immunization; Z20.822 Contact with and (suspected) exposure to COVID-19; Z79.82 Long term (current) use of aspirin; Z88.2 Allergy status to sulfonamides; Z88.6 Allergy status to analgesic agent; Z90.710 Acquired absence of both cervix and uterus; Z82.49 Family history of ischemic heart disease and other diseases of the circulatory system
CPT/HCPCS: 96365; 96367; 96368; 93005; 85025 ×2; 80048; 36415; 83735 ×2; 84100; 85610; 82947 ×3; 80076; 84443; 81003; 83036; 84484; 84439; 82728; 82746; 82607; 83690; 83540; 80053; 83880; 84466; 74177; 71045; 90471 ×2; 90732; 94760 ×2; 96375; 99285; U0003; Q9967; Q2035; J1650; J2270 ×2; J3475; J7030 ×2; J2405 ×2; J0744; G0378 ×2

== ENCOUNTER 2024-05-15 11:11 | Emergency (ER) | payer OTHER ==
--- OUTSIDE RECORDS SUMMARY | 2024-05-15 11:17 | XMS REPORT | Continuity of Care Document ---
Author Name Unknown Address [address] [facility] [address] [place] [address] [facility] Address [address] [facility]. [address] [place] [address] Care Team Providers Care Oracle Erp Developer Name Role Phone ANSON LOGAN Primary Care Physician Unavailab Gerardo Villafana Attending Clinician Unavailable Matt Trinidad Attending Clinician Unavailable Vane Enrique Attending Clinician Unavailable ANSON LOGAN Attending Clinician Unavailable Anson Logan MD Attending Clinician [phone] Doctor Unassigned, [place] Attending Clinician U HELEN Rodrigues Attending Clinician UnavailJESIKA Walter Attending Clinician Unavailable Jesika Escobedo MD Attending Clinician [phone] RADIOLOGY Attending Clinician Unavailable Radiology Attending Clinician Unavailable Damaso Mccauley Attending Clinician [phone] Helen Hoff MD Attending Clinician Ajibade_O_AH Attending Clinician Unavailable Ige-Odunjosr_J_AH Attending Clinician Unavailable DAMASO LAKE Attending Clinician Unavailable ANSON LOGAN Admitting Clinician Unavailable JESIKA ESCOBEDO Admitting Clinician Unavailable GERARDO RIVAS Admitting Clinician Unavailable Ajibade_O_AH Admitting Clinician Unavailable Ige-Odunuga_J_AH Admitting Clinician Unavailable Payers Payer Name Policy Type Policy Number Effective Date Expirati on Date Source [facility] [id number] 2021 00:00:00 [facility] (MEDICARE REPLACEMENT HMO) [id number] 2022 00:00:00 MEDICARE [place] [id number] 2011 [id number] 2020 [facility] [id number] 2020 00:00:00 [facility] MEDICARE NOV[place]AS MB [id number] 2011 00:00:00 [facility]VAN TAGE - HMO) [id number] 00:00:00 Problems Condition Name Condition Details Condition Category Status Onset Date Resolution Date Last Treatment Date Treating Clinician Comments Source Major depressive disorder Major Depressive Disorder Problem Active 05-14 00:00: 00 [facility] Atrial fibrillati on Atrial Fibrillati on Problem Active 05-14 00:00: 00 [facility] Type 2 diabetes mellitus with peripheral angiopathy Type 2 Diabetes Mellitus with Peripheral Angiopathy Problem Active 05-14 00:00: 00 [facility] Mixed hyperlipid emia due to type 2 diabetes mellitus Mixed Hyperlipid emia Due to Type 2 Diabetes Mellitus Problem Active 05-14 00:00: 00 [facility] Primary osteoarthr itis of right knee Primary osteoarthr itis of right knee Disease Active 2018-08 00:00: 00 Overview: Formattin g of this note might be different from the original. Added automatic ally from request for surgery [id number] [facility] Right shoulder pain Right shoulder pain Disease Active 03-21 00:00: 00 [facility] Right shoulder pain Right shoulder pain Disease Active 03-21 00:00: 00 [facility] History of dysplastic nevus History of dysplastic nevus Disease Active 2012-08 0 00:00: 00 [facility] [id number] Bilateral hearing loss, unspecifie d hearing loss type Problem [facility] [id number] Callus of foot Problem [facility] [id number] Dependence on other enabling machines and devices Problem [facility] [id number] Obstructiv e sleep apnea (adult) (pediatric ) Problem [facility] Diabetic peripheral neuropathy Diabetic peripheral neuropathy Problem [facility] Spasm Spasm Problem [facility] Sleep apnea Sleep apnea Problem [facility] Depression Depression Problem Co mmon [facility] Dyslipidem ia Dyslipidem ia Problem [facility] Dizziness Dizziness Problem Comm on [facility] [id number] Depression , unspecifie d depression type Problem [facility] Medication monitoring Medication monitoring encounter Problem [facility] [id number] Type 2 diabetes mellitus without complicati on, without long-term current use of insulin Problem [facility] [id number] Mixed stress and urge urinary incontinen ce Problem [facility] [id number] Right sided sciatica Problem [facility] [id number] Other chronic pain Problem [facility] [id number] Vaginal dryness, menopausal Problem [facility] [id number] 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 Problem [facility] [id number] Screening for breast cancer Problem [facility] Hyperlipid emia Hyperlipid emia Problem [facility] [id number] Essential hypertensi on Problem [facility] [id number] Skin lesion Problem [facility] Hypertensi on Hypertensi on Problem [facility] Type II diabetes mellitus well controlled Diabetes mellitus type 2, controlled Problem [facility] Chronic fatigue syndrome Chronic fatigue Problem [facility] [id number] Basal cell carcinoma (BCC) of skin of other part of torso Problem [facility] Allergies, Adverse Reactions, Alerts Allergy Name Allergy Type Status Severity Reaction(s) Onset Date Inactive Date Treating Clinician Comments Source Sulfa (Sulfona mide Antibiot ics) Propensi ty to adverse reaction s Active Unknown - See comments 11-24 00:00: 00 Doesn't remember the reaction. She believes it caused her to break out. [facility] Sulfa (Sulfona mide Antibiot ics) Propensi ty to adverse reaction s Active Unknown - See comments 11-24 00:00: 00 Doesn't remember the reaction. She believes it caused her to break out. [facility] SULFA (SULFONA MIDE ANTIBIOT ICS) Drug Class Active Unknown-Cmnt 11-24 00:00: 00 [facility] Codeine Propensi ty to adverse reaction s Active Nausea and/or Vomiting 2012-08 00:00: 00 [facility] CODEINE DRUG INGREDI Active N/V 2012-08 00:00: 00 [facility] Codeine Allergy to substanc e Active Abdominal pain [facility] SULFA (SULFONA MIDE ANTIBIOT ICS) Allergy to substanc e Active Nausea [facility] codeine codeine Active Unknown [facility] 0 Drug allergy Active Unknown [facility] pregabal in pregabal in Active swelling [facility] Social History Social Habit Start Date Stop Date Quantity Comments Source [facility] of [facility] Sex Assigned At [facility] Exposure to SARS-CoV-2 (event) 2022-12-22 00:00:00 2023-01-01 14:33:00 Not sure [facility] Alcohol intake 2022-06-10 00:00:00 2022-06-10 00:00:00 Current non-drinker of alcohol (finding) [facility] History of Social function 2020-03-16 00:00:00 2020-03-16 00:00:00 [facility] Tobacco use and exposure 2017-05-25 00:00:00 2017-05-25 00:00:00 Smokeless tobacco non-user [facility] Smoking Status Start Date Stop Date Source Never Smoker [facility] Medications Ordered Medication Name Filled Medication Name Start Date Stop Date Current Medication? Ordering Clinician Indication Dosage Frequency Signature (SIG) Comments Components Source methylPREDN ISolone 4 mg tablets 01-01 00:00: 00 Yes [id number] Take by mouth SEE-INSTRU CTIONS. follow package directions [facility] acyclovir 200 mg capsule 01-01 00:00: 00 Yes [id number] 800mg Take 4 capsules by mouth 5 (five) times daily. [facility] Diclofenac Sodium 75 MG Diclofenac Sodium 75 MG 05-12 00:00: 00 No 1{table t_as_ne eded} BID Diclofenac Sodium 75 MG Diclofenac Sodium 75 MG Diclofenac Sodium 75 MG 05-12 00:00: 00 No 1{table t_as_ne eded} BID Diclofenac Sodium 75 MG Diclofenac Sodium 75 MG Diclofenac Sodium 75 MG 05-12 00:00: 00 No 1{table t_as_ne eded} BID Diclofenac Sodium 75 MG Diclofenac Sodium 75 MG Diclofenac Sodium 75 MG 05-12 00:00: 00 No 1{table t_as_ne eded} BID Diclofenac Sodium 75 MG Diclofenac Sodium 75 MG Diclofenac Sodium 75 MG 05-12 00:00: 00 No 1{table t_as_ne eded} BID Diclofenac Sodium 75 MG Diclofenac Sodium 75 MG Diclofenac Sodium 75 MG 05-12 00:00: 00 No 1{table t_as_ne eded} BID Diclofenac Sodium 75 MG Diclofenac Sodium 75 MG Diclofenac Sodium 75 MG 2021-0 9-28 00:00: 00 No 1{table t_as_ne eded} BID Diclofenac Sodium 75 MG Diclofenac Sodium 75 MG Diclofenac Sodium 75 MG 2-0 9-28 00:00: 00 No 1{table t_as_ne eded} BID Diclofenac Sodium 75 MG Diclofenac Sodium 75 MG Diclofenac Sodium 75 MG 2-0 9-28 00:00: 00 No 1{table t_as_ne eded} BID Diclofenac Sodium 75 MG DICLOFENAC 75 mg EC tablet 2021-0 8-16 00:00: 00 Yes [id number] 9100 TAKE 1 TABLET BY MOUTH TWICE DAILY WITH MEALS [facility] DICLOFENAC 75 mg EC tablet 2021-0 7-22 00:00: 00 Yes [id number] 9100 TAKE 1 TABLET BY MOUTH TWICE DAILY WITH MEALS [facility] DICLOFENAC 75 mg EC tablet 2021-0 6-16 00:00: 00 Yes [id number] 9100 TAKE 1 TABLET BY MOUTH TWICE DAILY WITH MEALS [facility] DICLOFENAC 75 mg EC tablet 0 5-16 00:00: 00 Yes [id number] 9100 TAKE 1 TABLET BY MOUTH TWICE DAILY WITH MEALS [facility] DICLOFENAC 75 mg EC tablet 2021-0 4-14 00:00: 00 Yes [id number] 9100 TAKE 1 TABLET BY MOUTH TWICE DAILY WITH MEALS [facility] DICLOFENAC 75 mg EC tablet 0 3- 00:00: 00 Yes [id number] 9100 TAKE 1 TABLET BY MOUTH TWICE DAILY WITH MEALS [facility] DICLOFENAC 75 mg EC tablet 1- 00:00: 00 Yes [id number] 9100 TAKE 1 TABLET BY MOUTH TWICE DAILY WITH MEALS [facility] DICLOFENAC 75 mg EC tablet 2020-08 00:00: 00 Yes [id number] 9100 TAKE 1 TABLET BY MOUTH TWICE DAILY WITH MEALS [facility] DICLOFENAC 75 mg EC tablet 2020-08 00:00: 00 08-10 00:00 :00 No [id number] 9100 TAKE 1 TABLET BY MOUTH TWICE DAILY WITH MEALS [facility] Amoxicillin 500 MG Amoxicillin 500 MG 2020-08 00:00: 00 07-14 00:00 :00 No 2{capsu les} BID Amoxicilli n 500 MG DICLOFENAC 75 mg EC tablet 2020-08 0-04 00:00: 00 Yes [id number] 9100 TAKE 1 TABLET BY MOUTH TWICE DAILY WITH MEALS [facility] DICLOFENAC 75 mg EC tablet 9- 00:00: 00 05-18 00:00 :00 No [id number] 9100 TAKE 1 TABLET BY MOUTH TWICE DAILY WITH MEALS [facility] DICLOFENAC 75 mg EC tablet 03-11 00:00: 00 04-21 00:00 :00 No [id number] 9100 TAKE 1 TABLET BY MOUTH TWICE DAILY WITH MEALS [facility] DICLOFENAC 75 mg EC tablet 02-09 00:00: 00 Yes [id number] 9100 TAKE 1 TABLET BY MOUTH TWICE DAILY WITH MEALS [facility] DICLOFENAC 75 mg EC tablet 5-10 00:00: 00 Yes [id number] 9100 TAKE 1 TABLET BY MOUTH TWICE DAILY WITH MEALS [facility] DICLOFENAC 75 mg EC tablet 4-05 00:00: 00 Yes [id number] 9100 TAKE 1 TABLET BY MOUTH TWICE DAILY WITH MEALS [facility] DICLOFENAC 75 mg EC tablet 3-08 00:00: 00 Yes [id number] 9100 TAKE 1 TABLET BY MOUTH TWICE DAILY WITH MEALS [facility] DICLOFENAC 75 mg EC tablet 2-03 00:00: 00 Yes [id number] 9100 TAKE 1 TABLET BY MOUTH TWICE DAILY WITH MEALS [facility] DICLOFENAC 75 mg EC tablet 2019-08 00:00: 00 Yes [id number] 9100 TAKE 1 TABLET BY MOUTH TWICE DAILY WITH MEALS [facility] metFORMIN 500 mg tablet 2018-08 21:22: 42 Yes 500mg Take 500 mg by mouth 2 (two) times daily with meals. [facility] metFORMIN 500 mg tablet 2018-08 15:22: 42 Yes 500mg Take 500 mg by mouth 2 (two) times daily with meals. [facility] Estrace Estrace 01-23 00:00: 00 Yes Vane Enrique as directed [facility] Estrace 0.1 MG/GM Estrace 0.1 MG/GM 01-23 00:00: 00 No Estrace 0.1 MG/GM Estrace 0.1 MG/GM Estrace 0.1 MG/GM 01-23 00:00: 00 No Estrace 0.1 MG/GM Estrace 0.1 MG/GM Estrace 0.1 MG/GM 01-23 00:00: 00 No Estrace 0.1 MG/GM Estrace 0.1 MG/GM Estrace 0.1 MG/GM 01-23 00:00: 00 No Estrace 0.1 MG/GM Estrace 0.1 MG/GM Estrace 0.1 MG/GM 01-23 00:00: 00 No Estrace 0.1 MG/GM Estrace 0.1 MG/GM Estrace 0.1 MG/GM 01-23 00:00: 00 No Estrace 0.1 MG/GM Estrace 0.1 MG/GM Estrace 0.1 MG/GM 01-23 00:00: 00 No Estrace 0.1 MG/GM Estrace 0.1 MG/GM Estrace 0.1 MG/GM 01-23 00:00: 00 No Estrace 0.1 MG/GM Estrace 0.1 MG/GM Estrace 0.1 MG/GM 01-23 00:00: 00 No Estrace 0.1 MG/GM Estrace 0.1 MG/GM Estrace 0.1 MG/GM 01-23 00:00: 00 No Estrace 0.1 MG/GM Estrace 0.1 MG/GM Estrace 0.1 MG/GM 01-23 00:00: 00 No Estrace 0.1 MG/GM DICLOFENAC 75 mg EC tablet 01-10 00:00: 00 08-12 00:00 :00 No TAKE 1 TABLET BY MOUTH TWICE DAILY WITH MEALS [facility] atorvastati n 40 mg tablet Take 1 tablet every day by oral route. atorvastati n 40 mg tablet Take 1 tablet every day by oral route. No 1 Q1D atorvastat in 40 mg tablet Take 1 tablet every day by oral route. [facility] gabapentin 300 mg three times a day gabapentin 300 mg three times a day No gabapentin 300 mg three times a day [facility] metformin 1,000 mg tablet Take 1 tablet twice a day by oral route. metformin 1,000 mg tablet Take 1 tablet twice a day by oral route. No 1 BID metformin 1,000 mg tablet Take 1 tablet twice a day by oral route. [facility] metoprolol tartrate 25 mg tablet Take 1 tablet twice a day by oral route. metoprolol tartrate 25 mg tablet Take 1 tablet twice a day by oral route. No 1 BID metoprolol tartrate 25 mg tablet Take 1 tablet twice a day by oral route. [facility] Metformin HCl Metformin HCl Yes Vane Millender 1 tablet [facility] Atorvastati n Calcium Atorvastati n Calcium Yes Vane Millender 1 tablet in evening [facility] Metoprolol Tartrate Metoprolol Tartrate Yes Vane Millender 1 tablet [facility] Gabapentin Gabapentin Yes Vane Millender 1 capsule [facility] Duloxetine HCl Duloxetine HCl Yes Vane Millender 1 capsule [facility] Magnesium Magnesium Yes Vane Millender as directed [facility] Calcium 1200 Calcium 1200 Yes Vane Millender 1 tablet with a meal [facility] Diclofenac Diclofenac Yes Vane Millender 1 capsule as needed [facility] Vitamin D Vitamin D Yes Vane Millender as directed [facility] Ofloxacin 0.3 % Ofloxacin 0.3 % No 10{drop s_into_ affecte d_ear} QD Ofloxacin 0.3 % metFORMIN HCl 1000MG metFORMIN HCl 1000MG No 1{table t} BID metFORMIN HCl 1000MG DULoxetine HCl 20 MG DULoxetine HCl 20 MG No DULoxetine HCl 20 MG Metoprolol Tartrate 25 MG Metoprolol Tartrate 25 MG No Metoprolol Tartrate 25 MG Gabapentin 300 MG Gabapentin 300 MG No Gabapentin 300 MG Vitamin D 125 MCG (5000 UT) Vitamin D 125 MCG (5000 UT) No Vitamin D 125 MCG (5000 UT) Atorvastati n Calcium 20 MG Atorvastati n Calcium 20 MG No Atorvastat in Calcium 20 MG Magnesium 400 MG Magnesium 400 MG No QD Magnesium 400 MG Calcium 1200 4670-1075 MG-UNIT Calcium 1200 9422-1181 MG-UNIT No 1{table t_with_ a_meal} QD Calcium 1200 2315-8253 MG-UNIT Ofloxacin 0.3 % Ofloxacin 0.3 % No 10{drop s_into_ affecte d_ear} QD Ofloxacin 0.3 % metFORMIN HCl 1000MG metFORMIN HCl 1000MG No 1{table t} BID metFORMIN HCl 1000MG DULoxetine HCl 20 MG DULoxetine HCl 20 MG No DULoxetine HCl 20 MG Metoprolol Tartrate 25 MG Metoprolol Tartrate 25 MG No Metoprolol Tartrate 25 MG Gabapentin 300 MG Gabapentin 300 MG No Gabapentin 300 MG Vitamin D 125 MCG (5000 UT) Vitamin D 125 MCG (5000 UT) No Vitamin D 125 MCG (5000 UT) Atorvastati n Calcium 20 MG Atorvastati n Calcium 20 MG No Atorvastat in Calcium 20 MG Magnesium 400 MG Magnesium 400 MG No QD Magnesium 400 MG Calcium 1200 4956-1064 MG-UNIT Calcium 1200 5258-5841 MG-UNIT No 1{table t_with_ a_meal} QD Calcium 1200 7238-0211 MG-UNIT Ofloxacin 0.3 % Ofloxacin 0.3 % No 10{drop s_into_ affecte d_ear} QD Ofloxacin 0.3 % metFORMIN HCl 1000MG metFORMIN HCl 1000MG No 1{table t} BID metFORMIN HCl 1000MG DULoxetine HCl 20 MG DULoxetine HCl 20 MG No DULoxetine HCl 20 MG Metoprolol Tartrate 25 MG Metoprolol Tartrate 25 MG No Metoprolol Tartrate 25 MG Gabapentin 300 MG Gabapentin 300 MG No Gabapentin 300 MG Vitamin D 125 MCG (5000 UT) Vitamin D 125 MCG (5000 UT) No Vitamin D 125 MCG (5000 UT) Atorvastati n Calcium 20 MG Atorvastati n Calcium 20 MG No Atorvastat in Calcium 20 MG Magnesium 400 MG Magnesium 400 MG No QD Magnesium 400 MG Calcium 1200 9421-2076 MG-UNIT Calcium 1200 1388-8050 MG-UNIT No 1{table t_with_ a_meal} QD Calcium 1200 2335-2812 MG-UNIT Magnesium 400 MG Magnesium 400 MG No QD Magnesium 400 MG Atorvastati n Calcium 20MG Atorvastati n Calcium 20MG No QD Atorvastat in Calcium 20MG Metoprolol Tartrate 25MG Metoprolol Tartrate 25MG No 1{table t} BID Metoprolol Tartrate 25MG DULoxetine HCl 20 mg DULoxetine HCl 20 mg No 1{capsu le} QD DULoxetine HCl 20 mg Vitamin D 125 MCG (5000 UT) Vitamin D 125 MCG (5000 UT) No Vitamin D 125 MCG (5000 UT) Gabapentin 300 MG Gabapentin 300 MG No 1{capsu le} Gabapentin 300 MG Diclofenac 35 MG Diclofenac 35 MG No 1{capsu le_as_n eeded} TID Diclofenac 35 MG metFORMIN HCl 1000MG metFORMIN HCl 1000MG No 1{table t} BID metFORMIN HCl 1000MG Calcium 1200 5440-1872 MG-UNIT Calcium 1200 1785-3209 MG-UNIT No 1{table t_with_ a_meal} QD Calcium 1200 7371-2003 MG-UNIT Ofloxacin 0.3 % Ofloxacin 0.3 % No 10{drop s_into_ affecte d_ear} QD Ofloxacin 0.3 % Ofloxacin 0.3 % Ofloxacin 0.3 % No 10{drop s_into_ affecte d_ear} QD Ofloxacin 0.3 % DULoxetine HCl 20 mg DULoxetine HCl 20 mg No 1{capsu le} QD DULoxetine HCl 20 mg Magnesium 400 MG Magnesium 400 MG No QD Magnesium 400 MG Ofloxacin 0.3 % Ofloxacin 0.3 % No 10{drop s_into_ affecte d_ear} QD Ofloxacin 0.3 % Diclofenac 35 MG Diclofenac 35 MG No 1{capsu le_as_n eeded} TID Diclofenac 35 MG Atorvastati n Calcium 20 MG Atorvastati n Calcium 20 MG No Atorvastat in Calcium 20 MG Calcium 1200 7213-9688 MG-UNIT Calcium 1200 6390-9953 MG-UNIT No 1{table t_with_ a_meal} QD Calcium 1200 6386-9780 MG-UNIT metFORMIN HCl 1000MG metFORMIN HCl 1000MG No 1{table t} BID metFORMIN HCl 1000MG Metoprolol Tartrate 25MG Metoprolol Tartrate 25MG No 1{table t} BID Metoprolol Tartrate 25MG Vitamin D 125 MCG (5000 UT) Vitamin D 125 MCG (5000 UT) No Vitamin D 125 MCG (5000 UT) Gabapentin 300 MG Gabapentin 300 MG No 1{capsu le} Gabapentin 300 MG Ofloxacin 0.3 % Ofloxacin 0.3 % No 10{drop s_into_ affecte d_ear} QD Ofloxacin 0.3 % Ofloxacin 0.3 % Ofloxacin 0.3 % No 10{drop s_into_ affecte d_ear} QD Ofloxacin 0.3 % metFORMIN HCl 1000MG metFORMIN HCl 1000MG No 1{table t} BID metFORMIN HCl 1000MG DULoxetine HCl 20 MG DULoxetine HCl 20 MG No DULoxetine HCl 20 MG Metoprolol Tartrate 25 MG Metoprolol Tartrate 25 MG No Metoprolol Tartrate 25 MG Gabapentin 300 MG Gabapentin 300 MG No Gabapentin 300 MG Vitamin D 125 MCG (5000 UT) Vitamin D 125 MCG (5000 UT) No Vitamin D 125 MCG (5000 UT) Atorvastati n Calcium 20 MG Atorvastati n Calcium 20 MG No Atorvastat in Calcium 20 MG Magnesium 400 MG Magnesium 400 MG No QD Magnesium 400 MG Calcium 1200 1214-6167 MG-UNIT Calcium 1200 2655-3020 MG-UNIT No 1{table t_with_ a_meal} QD Calcium 1200 0747-9267 MG-UNIT Ofloxacin 0.3 % Ofloxacin 0.3 % No 10{drop s_into_ affecte d_ear} QD Ofloxacin 0.3 % metFORMIN HCl 1000MG metFORMIN HCl 1000MG No 1{table t} BID metFORMIN HCl 1000MG DULoxetine HCl 20 MG DULoxetine HCl 20 MG No DULoxetine HCl 20 MG Metoprolol Tartrate 25 MG Metoprolol Tartrate 25 MG No Metoprolol Tartrate 25 MG Gabapentin 300 MG Gabapentin 300 MG No Gabapentin 300 MG Vitamin D 125 MCG (5000 UT) Vitamin D 125 MCG (5000 UT) No Vitamin D 125 MCG (5000 UT) Atorvastati n Calcium 20 MG Atorvastati n Calcium 20 MG No Atorvastat in Calcium 20 MG Magnesium 400 MG Magnesium 400 MG No QD Magnesium 400 MG Calcium 1200 1642-3965 MG-UNIT Calcium 1200 7369-9376 MG-UNIT No 1{table t_with_ a_meal} QD Calcium 1200 2584-5376 MG-UNIT Gabapentin 300 MG Gabapentin 300 MG No 1{capsu le} Gabapentin 300 MG Metoprolol Tartrate 25 MG Metoprolol Tartrate 25 MG No Metoprolol Tartrate 25 MG DULoxetine HCl 20 MG DULoxetine HCl 20 MG No DULoxetine HCl 20 MG metFORMIN HCl 1000 MG metFORMIN HCl 1000 MG No metFORMIN HCl 1000 MG Magnesium 400 MG Magnesium 400 MG No QD Magnesium 400 MG Vitamin D 125 MCG (5000 UT) Vitamin D 125 MCG (5000 UT) No Vitamin D 125 MCG (5000 UT) Ofloxacin 0.3 % Ofloxacin 0.3 % No 10{drop s_into_ affecte d_ear} QD Ofloxacin 0.3 % Atorvastati n Calcium 20 MG Atorvastati n Calcium 20 MG No Atorvastat in Calcium 20 MG Calcium 1200 6242-6878 MG-UNIT Calcium 1200 4232-0453 MG-UNIT No 1{table t_with_ a_meal} QD Calcium 1200 6189-5975 MG-UNIT Gabapentin 300 MG Gabapentin 300 MG No 1{capsu le} Gabapentin 300 MG Metoprolol Tartrate 25 MG Metoprolol Tartrate 25 MG No Metoprolol Tartrate 25 MG DULoxetine HCl 20 MG DULoxetine HCl 20 MG No DULoxetine HCl 20 MG metFORMIN HCl 1000 MG metFORMIN HCl 1000 MG No metFORMIN HCl 1000 MG Magnesium 400 MG Magnesium 400 MG No QD Magnesium 400 MG Vitamin D 125 MCG (5000 UT) Vitamin D 125 MCG (5000 UT) No Vitamin D 125 MCG (5000 UT) Ofloxacin 0.3 % Ofloxacin 0.3 % No 10{drop s_into_ affecte d_ear} QD Ofloxacin 0.3 % Atorvastati n Calcium 20 MG Atorvastati n Calcium 20 MG No Atorvastat in Calcium 20 MG Calcium 1200 5811-4930 MG-UNIT Calcium 1200 0521-1593 MG-UNIT No 1{table t_with_ a_meal} QD Calcium 1200 7956-4523 MG-UNIT Gabapentin 300 MG Gabapentin 300 MG No 1{capsu le} Gabapentin 300 MG Metoprolol Tartrate 25 MG Metoprolol Tartrate 25 MG No Metoprolol Tartrate 25 MG DULoxetine HCl 20 MG DULoxetine HCl 20 MG No DULoxetine HCl 20 MG metFORMIN HCl 1000 MG metFORMIN HCl 1000 MG No metFORMIN HCl 1000 MG Magnesium 400 MG Magnesium 400 MG No QD Magnesium 400 MG Vitamin D 125 MCG (5000 UT) Vitamin D 125 MCG (5000 UT) No Vitamin D 125 MCG (5000 UT) Ofloxacin 0.3 % Ofloxacin 0.3 % No 10{drop s_into_ affecte d_ear} QD Ofloxacin 0.3 % Atorvastati n Calcium 20 MG Atorvastati n Calcium 20 MG No Atorvastat in Calcium 20 MG Calcium 1200 2368-5777 MG-UNIT Calcium 1200 9888-2630 MG-UNIT No 1{table t_with_ a_meal} QD Calcium 1200 6670-9642 MG-UNIT Ofloxacin 0.3 % Ofloxacin 0.3 % No 10{drop s_into_ affecte d_ear} QD Ofloxacin 0.3 % Diclofenac 35 MG Diclofenac 35 MG No 1{capsu le_as_n eeded} TID Diclofenac 35 MG Gabapentin 300 MG Gabapentin 300 MG No 1{capsu le} Gabapentin 300 MG Atorvastati n Calcium 20 MG Atorvastati n Calcium 20 MG No Atorvastat in Calcium 20 MG DULoxetine HCl 20 MG DULoxetine HCl 20 MG No DULoxetine HCl 20 MG Metoprolol Tartrate 25 MG Metoprolol Tartrate 25 MG No Metoprolol Tartrate 25 MG Vitamin D 125 MCG (5000 UT) Vitamin D 125 MCG (5000 UT) No Vitamin D 125 MCG (5000 UT) Calcium 1200 7411-0699 MG-UNIT Calcium 1200 3639-2877 MG-UNIT No 1{table t_with_ a_meal} QD Calcium 1200 2779-0137 MG-UNIT metFORMIN HCl 1000MG metFORMIN HCl 1000MG No 1{table t} BID metFORMIN HCl 1000MG Magnesium 400 MG Magnesium 400 MG No QD Magnesium 400 MG Immunizations Ordered Immunization Name Filled Immunization Name Date Status Comments Source FLUZONE HIGH DOSE OVER 65 FLUZONE HIGH DOSE OVER 65 2020-05-16 11:10:00 Completed [facility] FLUZONE HIGH DOSE OVER 65 FLUZONE HIGH DOSE OVER 65 2020-05-16 11:10:00 Completed [facility] FLUZONE HIGH DOSE OVER 65 FLUZONE HIGH DOSE OVER 65 2020-05-16 11:10:00 Completed [facility] FLUZONE HIGH DOSE OVER 65 FLUZONE HIGH DOSE OVER 65 2020-05-16 11:10:00 Completed [facility] FLUZONE HIGH DOSE OVER 65 FLUZONE HIGH DOSE OVER 65 2020-05-16 11:10:00 Completed [facility] FLUZONE HIGH DOSE OVER 65 FLUZONE HIGH DOSE OVER 65 2020-05-16 11:10:00 Completed [facility] FLUZONE HIGH DOSE OVER 66 FLUZONE HIGH DOSE OVER 65 2020-05-16 11:10:00 Completed [facility] FLUZONE HIGH DOSE OVER 65 FLUZONE HIGH DOSE OVER 65 2020-05-16 11:10:00 Completed [facility] FLUZONE HIGH DOSE OVER 65 FLUZONE HIGH DOSE OVER 65 2020-05-16 11:10:00 Completed [facility] FLUZONE HIGH DOSE OVER 65 FLUZONE HIGH DOSE OVER 65 2020-05-16 11:10:00 Completed [facility] FLUZONE HIGH DOSE OVER 65 FLUZONE HIGH DOSE OVER 65 2020-05-16 11:10:00 Completed [facility] FLUZONE HIGH DOSE OVER 65 FLUZONE HIGH DOSE OVER 65 2020-05-16 11:10:00 Completed [facility] FLUZONE HIGH DOSE OVER 65 FLUZONE HIGH DOSE OVER 65 2020-05-16 11:10:00 Completed [facility] FLUZONE HIGH DOSE OVER 65 FLUZONE HIGH DOSE OVER 65 2020-05-16 11:10:00 Completed [facility] FLUZONE HIGH DOSE OVER 65 FLUZONE HIGH DOSE OVER 65 2020-05-16 11:10:00 Completed [facility] FLUZONE HIGH DOSE OVER 65 FLUZONE HIGH DOSE OVER 65 2019-10-11 14:49:00 Completed [facility] FLUZONE HIGH DOSE OVER 65 FLUZONE HIGH DOSE OVER 65 2019-10-11 14:49:00 Completed [facility] FLUZONE HIGH DOSE OVER 65 FLUZONE HIGH DOSE OVER 65 2019-10-11 14:49:00 Completed [facility] FLUZONE HIGH DOSE OVER 65 FLUZONE HIGH DOSE OVER 65 2019-10-11 14:49:00 Completed [facility] FLUZONE HIGH DOSE OVER 65 FLUZONE HIGH DOSE OVER 65 2019-10-11 14:49:00 Completed [facility] FLUZONE HIGH DOSE OVER 65 FLUZONE HIGH DOSE OVER 65 2019-10-11 14:49:00 Completed [facility] FLUZONE HIGH DOSE OVER 65 FLUZONE HIGH DOSE OVER 65 2019-10-11 14:49:00 Completed [facility] FLUZONE HIGH DOSE OVER 65 FLUZONE HIGH DOSE OVER 65 2019-10-11 14:49:00 Completed [facility] FLUZONE HIGH DOSE OVER 65 FLUZONE HIGH DOSE OVER 65 2019-10-11 14:49:00 Completed [facility] FLUZONE HIGH DOSE OVER 65 FLUZONE HIGH DOSE OVER 65 2019-10-11 14:49:00 Completed [facility] FLUZONE HIGH DOSE OVER 65 FLUZONE HIGH DOSE OVER 65 2019-10-11 14:49:00 Completed [facility] FLUZONE HIGH DOSE OVER 65 FLUZONE HIGH DOSE OVER 65 2019-10-11 14:49:00 Completed [facility] FLUZONE HIGH DOSE OVER 65 FLUZONE HIGH DOSE OVER 65 2019-10-11 14:49:00 Completed [facility] FLUZONE HIGH DOSE OVER 65 FLUZONE HIGH DOSE OVER 65 2019-10-11 14:49:00 Completed [facility] FLUZONE HIGH DOSE OVER 65 FLUZONE HIGH DOSE OVER 65 2019-10-11 14:49:00 Completed [facility] FLUZONE HIGH DOSE OVER 65 FLUZONE HIGH DOSE OVER 65 2019-10-11 00:00:00 Completed [facility] pneumococcal polysaccharide PPV23 pneumococcal polysaccharide PPV23 2018-08-15 00:00:00 Completed [facility] influenza, injectable, quadrivalent influenza, injectable, quadrivalent 2018-08-15 00:00:00 Completed [facility] Pneumovax (PPSV23) Pneumovax (PPSV23) 2018-05-25 12:07:00 Completed [facility] Pneumovax (PPSV23) Pneumovax (PPSV23) 2018-05-25 12:07:00 Completed [facility] Pneumovax (PPSV23) Pneumovax (PPSV23) 2018-05-25 12:07:00 Completed [facility] Pneumovax (PPSV23) Pneumovax (PPSV23) 2018-05-25 12:07:00 Completed [facility] Pneumovax (PPSV23) Pneumovax (PPSV23) 2018-05-25 12:07:00 Completed [facility] Pneumovax (PPSV23) Pneumovax (PPSV23) 2018-05-25 12:07:00 Completed [facility] Pneumovax (PPSV23) Pneumovax (PPSV23) 2018-05-25 12:07:00 Completed [facility] Pneumovax (PPSV23) Pneumovax (PPSV23) 2018-05-25 12:07:00 Completed [facility] Pneumovax (PPSV23) Pneumovax (PPSV23) 2018-05-25 12:07:00 Completed [facility] Pneumovax (PPSV23) Pneumovax (PPSV23) 2018-05-25 12:07:00 Completed [facility] Pneumovax (PPSV23) Pneumovax (PPSV23) 2018-05-25 12:07:00 Completed [facility] Pneumovax (PPSV23) Pneumovax (PPSV23) 2018-05-25 12:07:00 Completed [facility] Pneumovax (PPSV23) Pneumovax (PPSV23) 2018-05-25 12:07:00 Completed [facility] Pneumovax (PPSV23) Pneumovax (PPSV23) 2018-05-25 12:07:00 Completed [facility] Pneumovax (PPSV23) Pneumovax (PPSV23) 2018-05-25 12:07:00 Completed [facility] Pneumovax Pneumovax 2018-05-25 00:00:00 Completed [facility] Prevnar 13 -Pneumonia Vaccine Prevnar 13 -Pneumonia Vaccine 2016-06-26 11:16:00 Completed [facility] Prevnar 13 -Pneumonia Vaccine Prevnar 13 -Pneumonia Vaccine 2016-06-26 11:16:00 Completed [facility] Prevnar 13 -Pneumonia Vaccine Prevnar 13 -Pneumonia Vaccine 2016-06-26 11:16:00 Completed [facility] Prevnar 13 -Pneumonia Vaccine Prevnar 13 -Pneumonia Vaccine 2016-06-26 11:16:00 Completed [facility] Prevnar 13 -Pneumonia Vaccine Prevnar 13 -Pneumonia Vaccine 2016-06-26 11:16:00 Completed [facility] Prevnar 13 -Pneumonia Vaccine Prevnar 13 -Pneumonia Vaccine 2016-06-26 11:16:00 Completed [facility] Prevnar 13 -Pneumonia Vaccine Prevnar 13 -Pneumonia Vaccine 2016-06-26 11:16:00 Completed [facility] Prevnar 13 -Pneumonia Vaccine Prevnar 13 -Pneumonia Vaccine 2016-06-26 11:16:00 Completed [facility] Prevnar 13 -Pneumonia Vaccine Prevnar 13 -Pneumonia Vaccine 2016-06-26 11:16:00 Completed [facility] Prevnar 13 -Pneumonia Vaccine Prevnar 13 -Pneumonia Vaccine 2016-06-26 11:16:00 Completed [facility] Prevnar 13 -Pneumonia Vaccine Prevnar 13 -Pneumonia Vaccine 2016-06-26 11:16:00 Completed [facility] Prevnar 13 -Pneumonia Vaccine Prevnar 13 -Pneumonia Vaccine 2016-06-26 11:16:00 Completed [facility] Prevnar 13 -Pneumonia Vaccine Prevnar 13 -Pneumonia Vaccine 2016-06-26 11:16:00 Completed [facility] Prevnar 13 -Pneumonia Vaccine Prevnar 13 -Pneumonia Vaccine 2016-06-26 11:16:00 Completed [facility] Prevnar 13 -Pneumonia Vaccine Prevnar 13 -Pneumonia Vaccine 2016-06-26 11:16:00 Completed [facility] Pneumovax (PPSV23) Pneumovax (PPSV23) Unknown Completed [facility] Prevnar 13 -Pneumonia Vaccine Prevnar 13 -Pneumonia Vaccine Unknown Completed [facility] FLUZONE HIGH DOSE OVER 65 FLUZONE HIGH DOSE OVER 65 Unknown Completed [facility] FLUZONE HIGH DOSE OVER 65 FLUZONE HIGH DOSE OVER 65 Unknown Completed [facility] Pneumovax (PPSV23) Pneumovax (PPSV23) Unknown Completed [facility] Prevnar 13 -Pneumonia Vaccine Prevnar 13 -Pneumonia Vaccine Unknown Completed [facility] FLUZONE HIGH DOSE OVER 65 FLUZONE HIGH DOSE OVER 65 Unknown Completed [facility] FLUZONE HIGH DOSE OVER 65 FLUZONE HIGH DOSE OVER 65 Unknown Completed [facility] Vital Signs Vital Name Observation Time Observation Value Comments S mika Systolic blood pressure 2023-01-01 20:30:00 157 mm[Hg] [facility] Diastolic blood pressure 2023-01-01 20:30:00 93 mm[Hg] [facility] Heart rate 2023-01-01 20:30:00 71 /min [facility] Respiratory rate 2023-01-01 20:30:00 15 /min [facility] Oxygen saturation in Arterial blood by Pulse oximetry 2023-01-01 20:30:00 96 /min [facility] Body temperature 2023-01-01 19:31:00 36.5 [place] [facility] Body height 2023-01-01 19:31:00 [facility].6 [facility] weight 2023-01-01 19:31:00 [facility]647 [facility] BMI 2023-01-01 19:31:00 29.05 kg/m2 [facility] height 2022-05-07 15:00:00 64.5 [in_i] Comm on [facility] weight 2022-05-07 15:00:00 188.6 [lb_av] Co mmon [facility] temperature 2022-05-07 15:00:00 97.2 [degF] Com mon [facility] bmi 2022-05-07 15:00:00 31.87 kg/m2 Comm on [facility] oximetry 2022-05-07 15:00:00 97 % Commo n [facility] respiratory rate 2022-05-07 15:00:00 16 /min [facility] blood pressure systolic 2022-05-07 15:00:00 130 mm[Hg] [facility] blood pressure diastolic 2022-05-07 15:00:00 80 mm[Hg] Common [facility] height 2021-12-22 15:00:00 64.5 [in_i] Comm on [facility] weight 2021-12-22 15:00:00 182.4 [lb_av] Co mmon [facility] temperature 2021-12-22 15:00:00 97.1 [degF] Com mon [facility] bmi 2021-12-22 15:00:00 30.82 kg/m2 Comm on [facility] oximetry 2021-12-22 15:00:00 98 % Commo n [facility] respiratory rate 2021-12-22 15:00:00 16 /min [facility] blood pressure systolic 2021-12-22 15:00:00 138 mm[Hg] Common [facility] blood pressure diastolic 2021-12-22 15:00:00 67 mm[Hg] Common [facility] height 2021-12-22 14:40:00 64.5 [in_i] Comm on [facility] weight 2021-12-22 14:40:00 182.4 [lb_av] Co mmon [facility] temperature 2021-12-22 14:40:00 97.1 [degF] Com mon [facility] bmi 2021-12-22 14:40:00 30.82 kg/m2 Comm on [facility] oximetry 2021-12-22 14:40:00 98 % Commo n [facility] respiratory rate 2021-12-22 14:40:00 16 /min Common [facility] blood pressure systolic 2021-12-22 14:40:00 138 mm[Hg] [facility] blood pressure diastolic 2021-12-22 14:40:00 67 mm[Hg] Common [facility] height 2021-10-13 15:40:00 64.5 [in_i] Comm on [facility] weight 2021-10-13 15:40:00 179.4 [lb_av] Co mmon [facility] temperature 2021-10-13 15:40:00 97.8 [degF] Com mon [facility] bmi 2021-10-13 15:40:00 30.32 kg/m2 Comm on [facility] oximetry 2021-10-13 15:40:00 96 % Commo n [facility] respiratory rate 2021-10-13 15:40:00 18 /min Common [facility] blood pressure systolic 2021-10-13 15:40:00 150 mm[Hg] Common [facility] blood pressure diastolic 2021-10-13 15:40:00 72 mm[Hg] Common [facility] Height 2020-05-14 00:00:00 66 [in_i] Lema ge [facility] BMI (Body Mass Index) 2020-05-14 00:00:00 27.4 kg/m2 [facility] Body Weight 2020-05-14 00:00:00 170 [lb_av] Vicky denia [facility] Procedures Procedure Date / Time Performed Performing Clinician Source BI SELF-REQUESTED SCREENING TOMOSYNTHESIS BILATERAL 2023-06-24 18:54:00 Anson Logan [facility] CONSENT/REFUSAL FOR DIAGNOSIS AND TREATMENT 2023-06-24 18:24:07 Doctor Unassigned, [place] [facility] PHYSICIAN ORDERS 2023-04-21 05:01:00 Doctor Unas signed, [place] [facility] CT ANGIOGRAM HEAD 2023-01-01 21:03:00 Jesika Escobedo [facility] CT ANGIOGRAM NECK 2023-01-01 21:03:00 Jesika Escobedo [facility] CT HEAD WO CONTRAST 2023-01-01 21:02:00 Susi Escobedo [facility] COMP. METABOLIC PANEL (06308) 2023-01-01 20:03:00 Jesika Escobedo [facility] CBC WITH DIFF 2023-01-01 20:03:00 [facility] PROTHROMBIN TIME / INR 2023-01-01 20:03:00 Shaheed Escobedo [facility] ACTIVATED PARTIAL THRMPLAS VIOLA 2023-01-01 20:03:00 Jesika Escobedo [facility] CONSENT/REFUSAL FOR DIAGNOSIS AND TREATMENT 2023-01-01 19:24:03 Doctor Unassigned, [place] [facility] PHYSICIAN ORDERS 2022-12-29 05:01:00 Doctor Unas signed, [place] [facility] ASSIGNMENT OF BENEFITS 2022-06-10 16:03:37 Docto r Unassigned, [place] [facility] CONSENT/REFUSAL FOR DIAGNOSIS AND TREATMENT 2022-06-10 16:03:11 Doctor Unassigned, [place] [facility] Hysterectomy 1993-08-15 00:00:00 [facility] Screening for Osteoporosis [facility] Screening for Malignant Neoplasm of Colon [facility] Plan of Care Planned Activity Planned Date Details Comments Source Instructions [facility] En[facility] Start Date/Time End Date/Time Encounter Type Admission Type Attending [facility] Care Facility Care Department Encounter ID Source 2022-08-05 15:03:00 Outpatient Rivas, Na STLMLC STLMLC [id number] [facility] 2022-05-11 11:10:00 Outpatient Rivas, Na STLMLC STLMLC [id number] [facility] 2022-05-05 14:46:00 Outpatient Rivas, Na STLMLC STLMLC [id number] [facility] 2022-03-23 14:51:00 Outpatient Rivas, Na STLMLC STLMLC [id number] [facility] 2021-12-22 14:24:01 Outpatient Rivas, Na STLMLC STLMLC [id number] [facility] 2021-12-18 09:37:00 Outpatient Rivas, Na STLMLC STLMLC [id number] [facility] 2021-09-09 14:24:01 Outpatient Rivas, Na STLMLC STLMLC [id number] [facility] 2021-09-09 14:17:05 Outpatient Rivas, Na STLMLC STLMLC [id number] [facility] 2021-09-09 12:52:42 Outpatient Rivas, Na STLMLC STLMLC [id number] [facility] 2021-09-09 12:51:48 Outpatient Rivas, Na STLMLC STLMLC [id number] [facility] 2021-09-09 12:38:48 Outpatient Rivas, Na STLMLC STLMLC [id number] [facility] 2021-09-09 12:37:47 Outpatient STLMLC STLMLC [id number] [facility] 2021-09-09 12:37:16 Outpatient STLMLC STLMLC [id number] [facility] 2021-09-09 12:36:37 Outpatient STLMLC STLMLC [id number] [facility] 2021-09-09 12:19:41 Outpatient STLMLC STLMLC [id number] [facility] 2021-09-09 12:10:43 Outpatient Amos Kin STLMLC STLMLC [id number] [facility] 2021-09-09 12:04:21 Outpatient STLMLC STLMLC [id number] [facility] 2021-09-09 11:51:33 Outpatient Corbin Enriqueen STLMLC STLMLC [id number] [facility] 2021-09-09 11:50:57 Outpatient Klaus, Vane STLMLC STLMLC [id number] [facility] 2021-09-09 11:18:37 Outpatient Klaus, Vane STLMLC STLMLC [id number] [facility] 2021-09-09 11:18:18 Outpatient Corbin Enriqueen STLMLC STLMLC [id number] [facility] 2023-06-24 12:26:04 2023-06-24 23:59:00 Outpatient R ANSON LOGAN [facility] [id number] [facility] 2023-06-24 12:26:04 2023-06-24 23:59:00 Hospital Encounter Anson Logan [facility] 1.2840.114 350.1.13.10 4.2.7.2.686 [id number] [facility] 2023-06-24 00:00:00 2023-06-24 00:00:00 Orders Only Doctor Unassigned, [place] [facility] 1.2840.114 350.1.13.10 4.2.7.2.686 [id number] [facility] 2023-05-31 00:00:00 2023-05-31 00:00:00 (TEL) [facility] [id number] [facility] 2023-05-20 09:30:00 2023-05-20 09:30:00 Outpatient R [facility] [id number] [facility] 2023-05-19 00:00:00 2023-05-19 00:00:00 Patient Secure Msg Doctor Unassigned, [place] [facility] 1.2840.114 350.1.13.10 4.2.7.2.686 [id number] [facility] 2023-04-21 00:00:00 2023-04-21 00:00:00 Orders Only Doctor Unassigned, [place] [facility] 1.2840.114 350.1.13.10 4.2.7.2.686 [id number] [facility] 2023-01-24 13:00:00 2023-01-24 13:00:00 Outpatient R HELEN HOFF [facility] [id number] [facility] 2023-01-01 14:33:00 2023-01-01 17:01:00 Emergency X JESIKA [facility]OBEDO [facility] ERT [id number] [facility] 2023-01-01 14:33:00 2023-01-01 17:01:00 Emergency Jesika Escobedo [facility] [id number] 350.1.13.10 4.2.7.2.686 [id number] [facility] 2022-12-29 00:00:00 2022-12-29 00:00:00 Orders Only Doctor Unassigned, [place] [facility] [id number] 350.1.13.10 4.2.7.2.686 [id number] [facility] 2022-10-04 00:00:00 2022-10-04 00:00:00 (TEL) STLMLC STLMLC [id number] [facility] 2022-06-28 00:00:00 2022-06-28 00:00:00 Outpatient [facility] [id number] [facility] 2022-06-10 11:03:36 2022-06-10 23:59:00 Outpatient R RADI[facility]Y [facility] [id number] [facility] 2022-06-10 11:03:36 2022-06-10 23:59:00 Hospital Encounter Radiology [facility] 1.2.840.114 350.1.13.10 4.2.7.2.686 [id number] [facility] 2022-05-18 00:00:00 2022-05-18 00:00:00 (TEL) STLMLC STLMLC [id number] [facility] 2022-05-12 00:00:00 2022-05-12 00:00:00 (TEL) STLMLC STLMLC [id number] [facility] 2022-05-10 00:00:00 2022-05-10 00:00:00 (TEL) STLMLC STLC [id number] [facility] 2022-05-07 00:00:00 2022-05-07 00:00:00 OFFICE VISIT ESTAB PT LEVEL 4 STLMLC STLC [id number] [facility] 2022-05-07 00:00:00 2022-05-07 00:00:00 (TEL) STLC STLC [id number] [facility] 2022-03-30 00:00:00 2022-03-30 00:00:00 Refill Jason [facility] MARC?[facility] [id number] 350.1.13.10 4.2.7.2.686 [id number] [facility] 2022-03-05 00:00:00 2022-03-05 00:00:00 Refill Jason [facility] MARC?[facility] [id number] 350.1.13.10 4.2.7.2.686 [id number] [facility] 2022-01-27 00:00:00 2022-01-27 00:00:00 Refill Jason [facility] MARC?[facility] 1.2.840.114 350.1.13.10 4.2.7.2.686 [id number] [facility] 2021-12-28 00:00:00 2021-12-28 00:00:00 Refill Jason [facility] MARC?[facility] OFF[facility] 1.2.840.114 350.1.13.10 4.2.7.2.686 [id number] [facility] 2021-12-22 00:00:00 2021-12-22 00:00:00 SUB ANNUAL [facility] WELLNESS VISIT [facility] [id number] [facility] 2021-12-22 00:00:00 2021-12-22 00:00:00 OFFICE VISIT EST PT LEVEL 3 STLMLC STLMLC [id number] [facility] 2021-11-25 00:00:00 2021-11-25 00:00:00 [facility] [place] 1.2.840.114 350.1.13.10 4.2.7.2.686 [id number] [facility] 2021-10-13 00:00:00 2021-10-13 00:00:00 OFFICE VISIT ESTAB PT LEVEL 4 STLMLC STLMLC [id number] [facility] 2021-10-10 00:00:00 2021-10-10 00:00:00 Maria Eugenia [facility] [place] 1.2.840.114 350.1.13.10 4.2.7.2.686 [id number] [facility] 2021-09-23 00:00:00 2021-09-23 00:00:00 (TEL) STLMLC STLMLC [id number] [facility] 2021-09-09 00:00:00 2021-09-09 00:00:00 Maria Eugenia [facility] [place] 1.2.840.114 350.1.13.10 4.2.7.2.686 [id number] [facility] 2021-08-10 00:00:00 2021-08-10 00:00:00 [facility] [place] 1.2.840.114 350.1.13.10 4.2.7.2.686 [id number] [facility] 2021-07-07 00:00:00 2021-07-07 00:00:00 OL DIG E/M SVC 11-20 MIN STLMLC STLMLC [id number] [facility] 2021-07-06 00:00:00 2021-07-06 00:00:00 (TEL) STLMLC STLMLC [id number] [facility] 2021-05-18 00:00:00 2021-05-18 00:00:00 Maria Eugenia [facility] Surgical Special[facility] [place] 1.2.840.114 350.1.13.10 4.2.7.2.686 [id number] [facility] 2021-04-19 00:00:00 2021-04-19 00:00:00 Helen Myles [facility] Surgical Special[facility] [place] 1.2.840.114 350.1.13.10 4.2.7.2.686 [id number] [facility] 2021-04-15 00:00:00 2021-04-15 00:00:00 Outpatient STLMLC STLMLC [id number] [facility] 2021-04-01 00:00:00 2021-04-01 00:00:00 Outpatient STLMLC STLMLC [id number] [facility] 2021-03-24 00:00:00 2021-03-24 00:00:00 Outpatient STLMLC STLMLC [id number] [facility] 2021-03-11 00:00:00 2021-03-11 00:00:00 Maria Eugenia [facility] [place] 1.2.840.114 350.1.13.10 4.2.7.2.686 [id number] [facility] 2021-02-08 00:00:00 2021-02-08 00:00:00 Maria Eugenia [facility] [place] 1.2.840.114 350.1.13.10 4.2.7.2.686 [id number] [facility] 2020-12-23 00:00:00 2020-12-23 00:00:00 Outpatient STLMLC STLMLC [id number] [facility] 2020-12-19 00:00:00 2020-12-19 00:00:00 [facility] [place] 1.2.840.114 350.1.13.10 4.2.7.2.686 [id number] [facility] 2020-11-27 00:00:00 2020-11-27 00:00:00 Outpatient STLMLC STLMLC [id number] [facility] 2020-11-27 00:00:00 2020-11-27 00:00:00 Outpatient STLMLC STLMLC [id number] [facility] 2020-11-16 00:00:00 2020-11-16 00:00:00 [facility] [place] 1.2.840.114 350.1.13.10 4.2.7.2.686 [id number] [facility] 2020-11-11 00:00:00 2020-11-11 00:00:00 Outpatient STLMLC STLMLC [id number] [facility] 2020-10-22 00:00:00 2020-10-22 00:00:00 Outpatient STLMLC STLMLC [id number] [facility] 2020-10-21 00:00:00 2020-10-21 00:00:00 Outpatient STLMLC STLMLC [id number] [facility] 2020-10-18 00:00:00 2020-10-18 00:00:00 Maria [facility] 1.2.840.114 350.1.13.10 4.2.7.2.686 [id number] [facility] 2020-10-07 06:06:00 2020-10-07 06:06:00 Outpatient Ajibade_O_A H VFP VFP [id number] [facility] 2020-09-17 00:00:00 2020-09-17 00:00:00 [facility] 1.2.840.114 350.1.13.10 4.2.7.2.686 [id number] [facility] 2020-08-25 00:00:00 2020-08-25 00:00:00 Outpatient STLMLC STLMLC [id number] [facility] 2020-08-11 00:00:00 2020-08-11 00:00:00 [facility] 1.2.840.114 350.1.13.10 4.2.7.2.686 [id number] [facility] 2020-05-20 08:15:00 2020-05-20 08:15:00 Outpatient Ajibade_O_A H VFP [facility] [id number] [facility] 2020-05-19 00:00:00 2020-05-19 00:00:00 Outpatient STLMLC STLMLC [id number] [facility] 2020-05-14 02:02:00 2020-05-14 02:02:00 Outpatient Ajibade_O_A H VFP VFP [id number] [facility] 2020-05-14 00:00:00 2020-05-14 00:00:00 Jitendra Grant, [employer]IST[employer] MANAGER: [id number] [facility], [address], [place] [address] , Ph. VFP [facility] - _[email or web address]_V@_ [place] [employer] [id number] [facility] 2019-12-03 10:30:00 2019-12-03 10:30:00 [facility] [facility] [id number] [facility] 2019-11-28 09:17:00 2019-11-28 09:17:00 [facility] [facility] [id number] [facility] 2019-11-27 15:38:00 2019-11-27 15:38:[address] [facility] [id number] [facility] 2019-10-11 15:00:00 2019-10-11 15:00:00 [facility] [id number] [facility] 2019-10-03 07:20:00 2019-10-03 07:20:00 Outpatient [place] _J_AH VFP VFP [id number] [facility] 2019-10-03 07:20:00 2019-10-03 07:20:00 Outpatient [place] _J_AH VFP VFP [id number] [facility] 2019-08-10 09:59:13 2019-08-10 23:59:00 Outpatient DAMASO TORRE[facility] [id number] [facility] 2019-07-03 11:00:00 2019-07-03 11:00:00 [facility] [id number] [facility] 2019-06-26 10:20:00 2019-06-26 10:20:[address] [facility] [id number] [facility] 2019-06-11 18:07:00 2019-06-11 18:07:[address] [facility] [id number] [facility] 2019-06-04 14:49:00 2019-06-04 14:49:[address] [facility] [id number] [facility] 2019-05-10 10:20:00 2019-05-10 10:20:[address] [facility] [id number] [facility] 2018-10-30 13:30:00 2018-10-30 13:30:00 [facility] [id number] [facility] 2018-10-12 14:00:00 2018-10-12 14:00:00 [facility] [id number] [facility] 2018-08-03 17:49:00 2018-08-03 17:49:00 [facility] [id number] [facility] 2018-08-02 15:22:00 2018-08-02 15:22:00 [facility] [id number] [facility] 2018-05-29 15:19:00 2018-05-29 15:19:00 Outpatient [facility] [id number] [facility] 2018-05-25 10:30:00 2018-05-25 10:30:00 Outpatient [facility] [id number] [facility] 2018-03-07 11:30:00 2018-03-07 11:30:00 Outpatient [facility] [id number] [facility] Results Test Description Test Time Test Comments Results Result Co mments Source [facility] / [id number] 20:59:27* Test Item Value Reference Range Interpretation Comme nts PROTIME PATIENT (test code = 5964-2) 13.5 See_Comment [Automated messa ge] The system which generated this result transmitted reference range: 12.0 - 14.7 Seconds. The reference range was not used to interpret this result as normal/abnormal. INR (test code = 6301-6) 1.1 Normal INR <1.1; Warfarin Therapeutic range 2.0 to 3.0 or 2.5 to 3.5, depending upon the indications. Lab Interpretation (test code = 68835-6) Normal [facility] (48340)2023-01-01 20:33:40* Test Item Value Reference Range Interpretation Comme nts NA (test code = 8479667449) 139 mmol/L 135-145 K (test code = 4815930151) 4.8 mmol/L 3.5-5.0 CL (test code = 3416966729) 103 mmol/L 98-108 CO2 TOTAL (test code = 2486062488) 30 mmol/L 23-31 AGAP (test code = 1876197354) 6 2-16 BUN (test code = 3867327703) 12 mg/dL 7-23 GLUCOSE (test code = 9073316712) 95 mg/dL 70-110 CREATININE (test code = 4820922579) 0.80 mg/dL 0.50-1.04 TOTAL BILI (test code = 3858679792) 0.7 mg/dL 0.1-1.1 CALCIUM (test code = 3551711726) 9.6 mg/dL 8.6-10.6 T PROTEIN (test code = 7358168125) 7.3 g/dL 6.3-8.2 ALBUMIN (test code = 3043185153) 4.1 g/dL 3.5-5.0 ALK PHOS (test code = 4650036382) 59 U/L 34-122 ALTv (test code = 1742-6) 22 U/L 5-35 AST(SGOT) (test code = 0344970903) 24 U/L 13-40 eGFR (test code = 1617270069) 69.7 mL/min/1.73m2 LAURA (test code = LAURA) Association of Glomerular Filtration Rate (GFR) and Staging of Kidney Disease* + + +- +| GFR (mL/min/1.73 m2) ?| With Kidney Damage ?| ?Without Kidney Damage+ ------+ ----+ ------+| ?>90 ?| ?Stage one ?| ? Normal ?+ -+ + -+| ?60-89 ?| ?Stage two ?| ? Decreased GFR ? + + +- +| ?30-59 ?| ?Stage three ?| ? Stage three ? + + +- +| ?15-29 ?| ?Stage four ? | ? Stage four ?+ -+ + -+| ?<15 (or dialysis) ? ?| ?Stage five ? | ? Stage five ?+ -+ + -+ *Each stage assumes the associated GFR level has been in effect for at least three months. ?Stages 1 to 5, with or without kidney disease, indicate chronic kidney disease. Notes: Determination of stages one and two (with eGFR >59mL/min/1.73 m2) requires estimation of kidney damage for at least three months as defined by structural or functional abnormalities of the kidney, manifested by either:Pathological abnormalities or Markers of kidney damage (including abnormalities in the composition of the blood or urine or abnormalities in imaging tests). [facility] WITH [id number] 20:24:37* Test Item Value Reference Range Interpretation Comme nts WBC (test code = 6690-2) 5.20 See_Comment [Automated [place]] The system which generated this result transmitted reference range: 4.30 - 11.10 10*3/?L. The reference range was not used to interpret this result as normal/abnormal. RBC (test code = 789-8) 4.06 See_Comment [Automated [place]] The system which generated this result transmitted reference range: 3.93 - 5.25 10*6/?L. The reference range was not used to interpret this result as normal/abnormal. HGB (test code = 718-7) 12.4 g/dL 11.6-15.0 HCT (test code = 4544-3) 36.8 % 35.7-45.2 MCV (test code = 787-2) 90.6 fL 80.6-95.5 MCH (test code = 785-6) 30.5 pg 25.9-32.8 MCHC (test code = 786-4) 33.7 g/dL 31.6-35.1 RDW-SD (test code = 37297-4) 44.6 fL 39.0-49.9 RDW-CV (test code = 788-0) 13.5 % 12.0-15.5 PLT (test code = 777-3) 249 See_Comment [Automated [place]] The system which generated this result transmitted reference range: 166 - 358 10*3/?L. The reference range was not used to interpret this result as normal/abnormal. MPV (test code = 92178-3) 10.1 fL 9.5-12.9 NRBC/100 WBC (test code = 4084550768) 0.0 See_Comment [Automated me ssage] The system which generated this result transmitted reference range: 0.0 - 10.0 /100 WBCs. The reference range was not used to interpret this result as normal/abnormal. NRBC x10^3 (test code = 4954379201) See_Comment [Automated me ssage] The system which generated this result transmitted reference range: 10*3/?L. The reference range was not used to interpret this result as normal/abnormal. GRAN MAT (NEUT) % (test code = 770-8) 43.4 % IMM GRAN % (test code = 5956665549) 0.20 % LYMPH % (test code = 736-9) 43.1 % MONO % (test code = 5905-5) 11.7 % EOS % (test code = 713-8) 1.2 % BASO % (test code = 706-2) 0.4 % GRAN MAT x10^3(ANC) (test code = 0749531143) 2.26 10*3/uL 1.88-7.09 IMM GRAN x10^3 (test code = 8247108113) 0.00-0.06 LYMPH x10^3 (test code = 731-0) 2.24 10*3/uL 1.32-3.29 MONO x10^3 (test code = 742-7) 0.61 10*3/uL 0.33-0.92 EOS x10^3 (test code = 711-2) 0.06 10*3/uL 0.03-0.39 BASO x10^3 (test code = 704-7) 0.01-0.07 [facility]"
--- NOTE | 2024-05-15 12:49 | RAD REPORT ---
EXAMINATION: Foot Right 3 View CLINICAL INDICATION: Female, 78 years old. [facility] MAIN PAIN Bed: TECHNIQUE: 3 view radiographs of the right foot were obtained. COMPARISON: 02/20/2018 FINDINGS: No evidence of fracture or dislocation. Normal alignment. Stable deformity along the distal aspect of the first metatarsal. Hardware fusion across the second and third proximal interphalangeal joints. Soft tissue swelling at the tuft of the second digit/nailbed, without underlying acute osseous abnorm ality. No soft tissue gas or suspicious calcifications. Scattered mild to moderate midfoot degenerative changes. Small calcaneal spur. IMPRESSION: Soft tissue swelling at the tuft of the second digit, without underlying osseous destructive changes. Other chronic findings as above.
[2024-05-15 13:00] LABS: Absolute Lymphocytes (CBC) 1.6 K/uL (0.7-4.9); Absolute Monocytes 0.4 K/uL (0.1-1.3); Absolute Neutrophil 2.2 K/uL (1.8-8.0); Basophils % 0.7 % (0-1.3); Eosinophils % 0.3 % (0-4.4); Hematocrit 36.1 % (36.0-45.0); Hemoglobin 12.1 g/dL (12.0-15.0); Lymphocytes % 37.9 % (15.3-44.8); MCH 30.8 pg (27.0-35.0); MCHC 33.4 g/dL (32.0-36.0); MCV 92.4 fL (80-100); MPV 8.2 fL (7.6-11.3); Monocytes % 10.2 % (3.3-12.3); Neutrophils % 50.9 % (41.7-73.7); Platelets 226 thou/uL (152-406); RBC Red Blood Cell Count 3.91 M/uL (3.86-4.86)
[2024-05-15 13:17] LABS: ALT/SGPT 20 U/L (13-56); AST/SGOT 11 U/L (15-37); Albumin 3.5 g/dL (3.4-5.0); Alkaline Phosphatase 56 U/L (45-117); Anion Gap 8.2 mEq/L (5.0-15.0); BUN Blood Urea Nitrogen 21 mg/dL (7-18); Bicarbonate 29 mEq/L (21-32); Bilirubin Total 0.6 mg/dL (0.2-1.0); Globulin 3.6 g/dL (2.3-3.5); Glomerular Filtration Rate 63 ml/min (=/>90); Glucose Level 136 mg/dL (74-106); Potassium 4.2 mEq/L (3.5-5.1); Protein, Total 7.1 g/dL (6.4-8.2); Sodium Level 138 mEq/L (136-145)
[2024-05-15 13:24] LABS: C-Reactive Protein < 2.90 mg/L (<3.00)
[2024-05-15] MEDS ORDERED: NA CHLORIDE 0.9% 500 ML ONE (13:48)
--- NOTE | 2024-05-15 16:09 | ER ---
Nurse's Notes [facility] Name: Jovita Guerrier Age: 78 yrs Sex: Female : 1945 Arrival Date: 05/15/2024 Time: 11:11 Bed 17 Private MD: Diagnosis: Cellulitis of left toe;Blister (nonthermal) of toe Presentation: 05/15 11:39 Chief complaint:. Chief complaint: Patient states: left second toe is blistered up. tm6 Went to doctor yesterday, he gave you antibiotics and anti-inflammatories. Because I'm diabetic I'm worried about it. Coronavirus screen: Vaccine status: Patient reports receiving the 2nd dose of the covid vaccine. Ebola Screen: Patient negative for fever greater than or equal to 101.5 degrees Fahrenheit, and additional compatible Ebola Virus Disease symptoms Patient denies exposure to infectious person. Patient denies travel to an Ebola-affected area in the 21 days before illness onset. No symptoms or risks identified at this time. Initial Sepsis Screen: Does the patient meet any 2 criteria? No. Patient's initial sepsis screen is negative. Does the patient have a suspected source of infection? No. Patient's initial sepsis screen is negative. Risk Assessment: Do you want to hurt yourself or someone else? Patient reports no desire to harm self or others. Onset of symptoms was May 13, 2024. 11:39 Method Of Arrival: Ambulatory tm6 11:39 Acuity: DANNIELLE 3 tm6 Triage Assessment: 11:41 General: Appears in no apparent distress. Behavior is calm, cooperative. Pain: Denies tm6 pain. EENT: No signs and/or symptoms were reported regarding the EENT system. Neuro: Level of Consciousness is awake, alert, obeys commands, Oriented to person, place, time, situation. Cardiovascular: Patient's skin is warm and dry. Respiratory: Airway is patent Respiratory effort is even, unlabored, Respiratory pattern is regular, symmetrical. GI: No signs and/or symptoms were reported involving the gastrointestinal system. Abdomen is flat, non-distended. : No signs and/or symptoms were reported regarding the genitourinary system. Derm: Reports blister on second toe of left foot. Musculoskeletal: No signs and/or symptoms reported regarding the musculoskeletal system. Historical: - Allergies: 11:41 Codeine; tm6 11:41 Sulfa (Sulfonamide Antibiotics); tm6 - PMHx: 11:41 Diabetes mellitus; neuropathy; Hypercholesterolemia; tm6 - PSHx: 11:41 foot; tm6 - Immunization history:: Client reports receiving the 2nd dose of the Covid vaccine. - Infectious Disease History:: staph several years ago. - Social history:: Smoking status: Patient denies any tobacco usage or history of. Patient/guardian denies using alcohol. - Family history:: not pertinent. Screenin:11 [facility] ED Fall Risk Assessment (Adult) History of falling in the last 3 months, qf including since admission No falls in past 3 months (0 pts) Confusion or Disorientation No (0 pts) Intoxicated or Sedated No (0 pts) Impaired Gait No (0 pts) Mobility Assist Device Used No (0 pt) Altered Elimination No (0 pt) Score/Fall Risk Level 0 - 2 = Low Risk Oriented to surroundings, Maintained a safe environment, Educated pt \T\ family on fall prevention, incl call for assistance when getting out of bed, Hourly rounding (assess needs \T\ fall precautionary measures) done. Abuse screen: Denies threats or abuse. Nutritional screening: No deficits noted. Tuberculosis screening: No symptoms or risk factors identified. Assessment: 13:50 General: Appears in no apparent distress. comfortable, well groomed, well nourished. qf Pain: Denies pain. Neuro: No deficits noted. Cardiovascular: No deficits noted. Respiratory: No deficits noted. GI: No deficits noted. Derm: Skin has blisters on Large blister noted at top half of patient right mid-toe, patient denies pain, right pedal pulses present, no active drainage from site, no toe nail present, patient states she's being treated by her PCP but no improvement noted. 13:56 Reassessment: Pt brought back to ER room. mb9 15:56 Reassessment: Dr. Roman at bedside speaking to pt and Dr. Rodriguez via telephone. mb9 16:32 Reassessment: No changes from previously documented assessment. Patient and/or family mb9 updated on plan of care and expected duration. Pain level reassessed. Patient is alert, oriented x 3, equal unlabored respirations, skin warm/dry/pink. Vital Signs: 11:38 Resp 17; Temp 98.5(O); Weight 81.19 kg; Height 5 ft. 6 in. ; Pain 0/10; tm6 11:38 BP 155 / 81; Pulse 50; Pulse Ox 97% on R/A; MAP 104 mmHg; tm6 14:56 BP 152 / 73; Pulse 53; Resp 16; Pulse Ox 99% on R/A; qf 16:33 BP 148 / 70; Pulse 55; Resp 16; Pulse Ox 99% ; mb9 11:38 Body Mass Index 28.89 (81.19 kg, 167.64 cm) tm6 11:38 Pain Scale: Adult tm6 ED Course: 11:22 Patient arrived in ED. gm2 11:34 Jose Roman MD is Attending Physician. michael 11:41 Triage completed. tm6 11:41 Arm band placed on left wrist. tm6 12:44 Foot Right 3 View XRAY In Process Unspecified. EDMS 12:55 Initial lab(s) drawn, by id, sent to lab. Inserted saline lock: 20 gauge in left iw antecubital area, using aseptic technique. Blood collected. Flushed with 10 mL NS. 14:05 Lizz Maldonado, RN is Primary Nurse. qf 14:14 Patient has correct armband on for positive identification. Bed in low position. Call qf light in reach. Side rails up X 1. Provided Education on:. belt changer on. Pulse ox on. NIBP on. Door closed. Noise minimized. Visitors limited. Lights dimmed. Warm blanket given. 16:08 Misael Rodriguez DPM is Referral Physician. michael 16:33 No provider procedures requiring assistance completed. IV discontinued, intact, mb9 bleeding controlled, No redness/swelling at site. Pressure dressing applied. Administered Medications: 13:56 Drug: NS 0.9% IV 500 ml IV at bolus once Route: IV; Rate: bolus; Site: left antecubital;mb9 14:48 Follow up: Response: No adverse reaction; IV Status: Completed infusion qf 16:32 Drug: Cephalexin PO 500 mg PO once Route: PO; mb9 16:34 Follow up: Response: No adverse reaction mb9 Medication: 14:14 VIS not applicable for this client. qf Outcome: 16:09 Discharge ordered by . michael 16:33 Discharged to home ambulatory, mb9 16:33 Condition: stable 16:33 Discharge instructions given to patient, Instructed on discharge instructions, follow up and referral plans. Demonstrated understanding of instructions, follow-up care, medications, Prescriptions given X 1, 16:34 Patient left the ED. mb9 Signatures: Dispatcher [employer] EDJose Contreras MD MD cha Williams, Irene, RN RN iw Wilkerson, Emilia Landry RN RN mb9 Mary Herrera Tawney, RN RN tm6 Lizz Maldonado RN RN qf
--- NOTE | 2024-05-15 16:09 | EDPHYS ---
Physician Documentation [facility] Name: Jovita Guerrier Age: 78 yrs Sex: Female : 1945 Arrival Date: 05/15/2024 Time: 11:11 Bed 17 Private MD: ED Physician Jose Roman HPI: 05/15 16:05 This 78 yrs old Female presents to ER via Ambulatory with complaints of TOE michael PAIN. PT SAYS TOE IS INFECTED. 16:05 The patient presents with pain, that is acute. The complaints affect the left foot, michael left second toe and Left second toenail. Context: The problem was sustained at an unknown location. Onset: The symptoms/episode began/occurred 3 day(s) ago. Modifying factors: The symptoms are alleviated by elevation of extremity, the symptoms are aggravated by movement. Severity of symptoms: At their worst the symptoms were mild, moderate, in the emergency department the symptoms are unchanged. The patient has not experienced similar symptoms in the past. Historical: - Allergies: 11:41 Codeine; tm6 11:41 Sulfa (Sulfonamide Antibiotics); tm6 - PMHx: 11:41 Diabetes mellitus; neuropathy; Hypercholesterolemia; tm6 - PSHx: 11:41 foot; tm6 - Immunization history:: Client reports receiving the 2nd dose of the Covid vaccine. - Infectious Disease History:: staph several years ago. - Social history:: Smoking status: Patient denies any tobacco usage or history of. Patient/guardian denies using alcohol. - Family history:: not pertinent. ROS: 16:05 MS/extremity: Positive for erythema, pain, swelling, tenderness, of the plantar aspect michael of left second toe, left second toe and Left second toenail, 16:05 Constitutional: Negative for fever, chills, and weight loss, Eyes: Negative for injury, michael pain, redness, and discharge, ENT: Negative for injury, pain, and discharge, Neck: Negative for injury, pain, and swelling, Cardiovascular: Negative for chest pain, palpitations, and edema, Respiratory: Negative for shortness of breath, cough, wheezing, and pleuritic chest pain, Abdomen/GI: Negative for abdominal pain, nausea, vomiting, diarrhea, and constipation, Back: Negative for injury and pain, : Negative for injury, bleeding, discharge, and swelling, Neuro: Negative for headache, weakness, numbness, tingling, and seizure, Psych: Negative for depression, anxiety, suicide ideation, homicidal ideation, and hallucinations, Allergy/Immunology: Negative for hives, rash, and allergies, Endocrine: Negative for neck swelling, polydipsia, polyuria, polyphagia, and marked weight changes, Hematologic/Lymphatic: Negative for swollen nodes, abnormal bleeding, and unusual bruising, 16:05 MS/extremity: Positive for decreased range of motion, erythema, pain, swelling, tenderness, of the plantar aspect of left second toe, left second toe and Left second toenail, Exam: 16:05 Constitutional: This is a well developed, well nourished patient who is awake, alert, michael and in no acute distress. Head/Face: Normocephalic, atraumatic. Eyes: Pupils equal round and reactive to light, extra-ocular motions intact. Lids and lashes normal. Conjunctiva and sclera are non-icteric and not injected. Cornea within normal limits. Periorbital areas with no swelling, redness, or edema. ENT: Nares patent. No nasal discharge, no septal abnormalities noted. Tympanic membranes are normal and external auditory canals are clear. Oropharynx with no redness, swelling, or masses, exudates, or evidence of obstruction, uvula midline. Mucous membranes moist. Neck: Trachea midline, no thyromegaly or masses palpated, and no cervical lymphadenopathy. Supple, full range of motion without nuchal rigidity, or vertebral point tenderness. No Meningismus. Chest/axilla: Normal chest wall appearance and motion. Nontender with no deformity. No lesions are appreciated. Cardiovascular: Regular rate and rhythm with a normal S1 and S2. No gallops, murmurs, or rubs. Normal PMI, no JVD. No pulse deficits. Respiratory: Lungs have equal breath sounds bilaterally, clear to auscultation and percussion. No rales, rhonchi or wheezes noted. No increased work of breathing, no retractions or nasal flaring. Abdomen/GI: Soft, non-tender, with normal bowel sounds. No distension or tympany. No guarding or rebound. No evidence of tenderness throughout. Back: No spinal tenderness. No costovertebral tenderness. Full range of motion. Female : Normal external genitalia. Skin: Warm, dry with normal turgor. Normal color with no rashes, no lesions, and no evidence of cellulitis. Neuro: Awake and alert, GCS 15, oriented to person, place, time, and situation. Cranial nerves II-XII grossly intact. Motor strength 5/5 in all extremities. Sensory grossly intact. Cerebellar exam normal. Normal gait. Psych: Awake, alert, with orientation to person, place and time. Behavior, mood, and affect are within normal limits. 16:05 Musculoskeletal/extremity: ROM: intact in all extremities, full active range of motion, full passive range of motion, limited active range of motion due to pain, limited passive range of motion due to pain, Circulation is intact in all extremities. Sensation intact. Compartment Syndrome exam of affected extremity: is normal. Joints: All joints appear normal with full range of motion. Weight bearing: able to fully bear weight, Tendon exam: specific tendon testing normal through active and passive range of motion DVT Exam: negative Homans' sign noted on exam, no appreciated bluish discoloration, pain, swelling, tenderness, erythema, increased warmth, that is mild, of the plantar aspect of left second toe, left second toe and Left second toenail, Vital Signs: 11:38 Resp 17; Temp 98.5(O); Weight 81.19 kg; Height 5 ft. 6 in. ; Pain 0/10; tm6 11:38 BP 155 / 81; Pulse 50; Pulse Ox 97% on R/A; MAP 104 mmHg; tm6 14:56 BP 152 / 73; Pulse 53; Resp 16; Pulse Ox 99% on R/A; qf 16:33 BP 148 / 70; Pulse 55; Resp 16; Pulse Ox 99% ; mb9 11:38 Body Mass Index 28.89 (81.19 kg, 167.64 cm) tm6 11:38 Pain Scale: Adult tm6 MDM: 11:34 Patient medically screened. [facility] 16:10 Differential diagnosis: fracture, sprain, cellulitis. Data reviewed: vital signs, [facility] nurses notes, lab test result(s), radiologic studies, plain films. Consideration of Admission/Observation Escalation of care including admission/observation considered. I considered the following discharge prescriptions or medication management in the emergency department Medications were administered in the Emergency Department. See MAR. Independent interpretation of the following test(s) in the Emergency Department X-Ray: My interpretation is left foot. Test considered but Not performed: CT: no ct foot. Care significantly affected by the following chronic conditions: Diabetes. 05/15 11:35 Order name: CBC with Diff; Complete Time: 15:48 [facility] 05/15 11:35 Order name: Comprehensive Metabolic Panel; Complete Time: 15:48 [facility] 05/15 11:35 Order name: CRP; Complete Time: 15:48 [facility] 05/15 11:35 Order name: Foot Right 3 View XRAY; Complete Time: 15:48 [facility] 05/15 16:10 Order name: Post-op shoe; Complete Time: 16:32 [facility] Administered Medications: 13:56 Drug: NS 0.9% IV 500 ml IV at bolus once Route: IV; Rate: bolus; Site: left antecubital;mb9 14:48 Follow up: Response: No adverse reaction; IV Status: Completed infusion qf 16:32 Drug: Cephalexin PO 500 mg PO once Route: PO; mb9 16:34 Follow up: Response: No adverse reaction mb9 Disposition Summary: 05/15/24 16:09 Discharge Ordered Notes: Location: Home [facility] Problem: new [facility] Symptoms: have improved [facility] Condition: Stable [facility] Diagnosis - Cellulitis of left toe michael - Blister (nonthermal) of toe michael Followup: [facility] - With: Misael Rodriguez DPM - When: Tomorrow - Reason: Recheck today's complaints, Continuance of care, Re-evaluation by your physician Discharge Instructions: - Discharge Summary Sheet michael - Blisters, Adult michael - Cellulitis, Adult [facility] Forms: - Medication Reconciliation Form [facility] - Antibiotic Education [facility] - Prescription Opioid Use [facility] - Patient Portal Instructions [facility] - Leadership Thank You Letter [facility] Prescriptions: - Cephalexin 500 mg Oral capsule - take 1 capsule ORAL route every 6 hours for 7 days; 28 capsule; Refills: 0, michael Product Selection Permitted Signatures: Dispatcher [employer] Jose Scott MD MD cha Wilkerson, Emilia Landry RN RN mb9 Brielle Larsen RN RN tm6 Lizz Maldonado RN qf
[2024-05-15] MEDS ORDERED: CEPHALEXIN 250 MG CAP ONE (16:24)
[2024-05-15 17:25] VITALS: TEMP 98.5
[2024-05-15 17:27] VITALS: O2SAT 99
[2024-05-15 17:28] VITALS: BP 148/70
== END 2024-05-15 16:34 | disposition home or self-care (01) ==
LOC: ER 11:11
DX: L03.032 Cellulitis of left toe (principal); S90.425A Blister (nonthermal), left lesser toe(s), initial encounter
CPT/HCPCS: 85025; 36415; 80053; 86140; 73630; 96360; 99285; J7040